=== PATIENT | female | born 1955 | race Caucasian/White ===

== ENCOUNTER 2017-03-05 11:55 | Outpatient (CLI) | payer OTHER | END 2017-03-05 11:56 | disposition home or self-care (01) | LOC: AMBL 11:55 | PROVIDERS: ATTEND Emergency Medicine | DX: M79.89 Other specified soft tissue disorders (principal); M79.604 Pain in right leg ==

== ENCOUNTER 2017-03-18 13:17 | Outpatient (CLI) ==
--- NOTE | 2017-03-18 14:30 | US ---
EXAM: Bilateral lower extremity venous Doppler HISTORY: Concern for DVT with lower extremity pain and the patient reports prior DVT. COMPARISON: None TECHNIQUE: Sonographic and Doppler evaluation of the bilateral lower extremity vessels from the com mon femoral through the anterior tibial veins were obtained. Augmentation and compression technique s were also performed. FINDINGS: There is spontaneous Doppler flow seen in the bilateral lower extremity veins from the co mmon femoral through the anterior tibial veins. There is normal compression and augmentation throug hout the lower extremity veins. Sonographic appearance of the soft tissues demonstrate mild edema. IMPRESSION: No lower extremity thrombus.
[2017-03-19 18:04] VITALS: BMI 21.1
--- NOTE | 2017-03-20 09:21 | ECHO2D ---
Date of Exam: 03/18/17 Ordering Physician: BRIT MONTGOMERY Reason for Echo: BILATERAL EDEMA, REDNESS, SWELLING, LVH M-Mode Normal Adult Results LV Dimensions Normal Adult Results AoV Opening excursions >1.6 >1.6 LVEDD-base- 3.5-5.8 4.2 Ao root dimensions 2.0-3.7 3.4 LVESD-base- 3.1-4.6 L. Atrium dimensions 1.9-3.8 4.5 Post. Wall thickness 0.8-1.1 1.1 IV septum (thickness) 0.7-1.2 1.2 Post. Wall excursion 0.72-1.3 NORMAL Septal motion NORMAL Systolic motion R. Ventricular cavity 1.5-2.0 NORMAL LVEF 60% 74% Paradoxical septal wall motion NORMAL 2-D : VALVES--NORMAL, NORMAL LEFT VENTRICULAR CONTRACTILITY--ENLARGED LEFT ATRIAL CAVITY, NO EFFUSION, NO THROMBUS M-MODE: MV: NORMAL AV: NORMAL TV: NORMAL PV: CHAMBER SIZE: ENLARGED LEFT ATRIAL CAVITY WALL MOTION: NORMAL PERICARDIUM: NORMAL INTERPRETATION: 1. BORDERLINE LEFT VENTRICULAR HYPERTROPHY WITH ENLARGED LEFT ATRIAL CAVITY 2. NORMAL LEFT VENTRICULAR CONTRACTILITY 3. NORMAL VALVES MTDD
== END 2017-03-18 13:18 | disposition home or self-care (01) ==
LOC: RAD 13:17
PROVIDERS: ATTEND Internal Medicine
DX: J44.9 Chronic obstructive pulmonary disease, unspecified (principal); R60.0 Localized edema; M79.605 Pain in left leg; M79.604 Pain in right leg; L53.9 Erythematous condition, unspecified

== ENCOUNTER 2017-03-19 17:44 | Emergency (ER) ==
[2017-03-19 18:04] VITALS: BP 161/60; TEMP 97.2; BMI 21.1
[2017-03-19] MEDS ORDERED: VALIUM SYRINGE IM STA (18:15)
[2017-03-19] MEDS ORDERED: GLUCAGEN IM STA (18:15)
--- NOTE | 2017-03-19 18:21 | ED.PDOC ---
General ED Provider: Dr. JI RODAS Stated Complaint: DYSPHAGIA TO SOLIDS FEELS FOOD IS STUCK Time Seen by Physician: 17:45 (WHILE EATING SOME RIBS A MEAT PORTION GOT STUCK IN HER THROAT) Mode of Arrival: Walk-In Information Source: Patient Exam Limitations: No limitations Primary Care Provider: BRIT MONTGOMERY Nursing and Triage Documentation Reviewed and Agree: Yes <JI RODAS Last Filed: 03/19/17 18:19> ED Provider: Dr. CHIDI ROWLAND Primary Care Provider: BRIT MONTGOMERY <CHIDI ROWLAND Last Filed: 03/19/17 21:11> Chief Complaint: Non-specific Complaint EENT Complaint Exam - Throat Complaint/Exam Onset/Duration: 1 PM Symptoms Are: Still present (NO DROOLING NOTED WHILE IN THE E/D) Timimg: Constant Initial Severity: Mild Current Severity: Mild Aggravating: Reports: Eating (WAS ABLE TO LAY ON HER SIDE ) Alleviating: Reports: Upright position Associated Signs and Symptoms: Denies: Fever, Dysphagia, Drooling, Foreign body sensation, Chills, Cough, Wheezing, Hoarseness, Sinus discomfort, Nasal congestion, Difficulty breathing, Lethargy, Irritability, Decreased activity, Vomiting, Diarrhea, Decreased hearing, Ear drainage Related History: Reports: Similar Episode (YES BUT IT RESOLVES ITSELF PER PHILL GRAND DAUGHTER , PT HAS BARRETS ) Uvula Midline: Yes Ailyn-tonsillar Fluctuence: No Scarlatinaform Rash Present: No Stridor Present: No Sinus Tenderness Present: No Tonsillar Hypertrophy Present: No Tonsillar Exudate Present: No Ailyn-tonsillar Swelling Present: No Adenopathy Present: No Splenomegaly Present: No Differential Diagnoses: Other (CANCER OF ESOPHAGOUS) <JI RODAS Last Filed: 03/19/17 18:19> Review of Systems - Review Of Systems Constitutional: Reports: No symptoms Eyes: Reports: No symptoms Ears, Nose, Mouth, Throat: Reports: Throat pain Respiratory: Reports: No symptoms Cardiac: Reports: No symptoms GI: Reports: No symptoms : Reports: No symptoms Musculoskeletal: Reports: No symptoms Skin: Reports: No symptoms Neurological: Reports: No symptoms Endocrine: Reports: No symptoms Hematologic/Lymphatic: Reports: No symptoms All Other Systems: Reviewed and Negative <JI RODAS Filed: 03/19/17 18:19> Past Medical History - Past Medical History Previously Healthy: No Endocrine: Reports: DM 2 Cardiovascular: Reports: Hypertension Respiratory: Reports: COPD, Pneumonia Hematological: Reports: Anemia (B12 DIFFICENCY) Gastrointestinal: Reports: Other (BARRETES ) Genitourinary: Reports: None Neuro/Psych: Reports: None Musculoskeletal: Reports: None Cancer: Reports: Other Last Menstrual Period: menoapuse - Surgical History General Surgical History: Reports: Tubal ligation, Cholecystectomy, Orthopedic ( [facility]BOW) - Family History Family History: Reports: Unknown - Social History Smoking Status: Former smoker Hx Substance Use: No Alcohol Screening: None <JI RODAS - Last Filed: 03/19/17 18:19> Physical Exam - Physical Exam Appearance: Well-appearing Eyes: YENI, EOMI, Conjunctiva clear ENT: Ears normal, Nose normal, Oropharynx normal Respiratory: Airway patent, Breath sounds clear, Breath sounds equal, Respirations nonlabored Cardiovascular: RRR, Pulses normal, No rub, No murmur GI/: Soft, Nontender, No masses, Bowel sounds normal, No Organomegaly Musculoskeletal: Normal strength, ROM intact, No edema, No calf tenderness Skin: Warm, Dry, Normal color Neurological: Sensation intact, Motor intact, Reflexes intact, Cranial nerves intact, Alert, Oriented Psychiatric: Affect appropriate, Mood appropriate <JI RODAS - Last Filed: 03/19/17 18:19> Interpretation - Radiology Interpretation Radiology Interpretation By: Radiologist Radiology Results: Positive (Heterogenous Material food bolus measuring 2.2x3.3x4.1 in the proximal cervical esophagus) Exam Interpreted: CT Scan <CHIDI ROWLAND - Last Filed: 03/19/17 21:11> Physician Notification - Case Discussed Physician Notified: Dr HOOPER Time of Notification: 20:20 (acepted to ER at [facility] ) <CHIDI ROWLAND - Last Filed: 03/19/17 21:11> Critical Care Note - Critical Care Note Total Time (mins): 0 <JI RODAS - Last Filed: 03/19/17 18:19> Course - Course Orders, Labs, Meds: Orders Category Date Time Status Diazepam Syringe [Valium Syringe] MEDS 03/19/17 18:15 Stat 2 mg IM ONCE STA Glucagon,Human Recombinant [Glucagen] MEDS 03/19/17 18:15 Stat 1 mg IM ONCE STA Medications Discontinued Medications Generic Name Dose Route Start Last Admin Trade Name Freq PRN Reason Stop Dose Admin Diazepam 2 mg 03/19/17 18:15 Valium Syringe IM 03/19/17 18:16 ONCE STA Glucagon 1 mg 03/19/17 18:15 Glucagen IM 03/19/17 18:16 ONCE STA Vital Signs: Temp Pulse Resp BP Pulse Ox 03/19/17 17:45 97.2 F L 91 H 20 161/60 H 98 <JI RODAS - Last Filed: 03/19/17 18:19> - Course Hematology/Chemistry: 03/19/17 18:04 03/19/17 19:17 Orders, Labs, Meds: Lab Review 03/19/17 03/19/17 18:04 19:17 WBC 4.54 L RBC 3.83 L Hgb 8.4 L Hct 30.1 L MCV 78.6 L MCH 21.9 L MCHC 27.9 L RDW Coeff of Juanpablo 17.1 H Plt Count 343 Immature Gran % (Auto) 0.2 Neut % (Auto) 51.5 Lymph % (Auto) 33.9 [place] % (Auto) 10.6 H Eos % (Auto) 2.0 Baso % (Auto) 1.8 Immature Gran # (Auto) 0.0 Neut # 2.3 Lymph # 1.5 [place] # 0.5 Eos # 0.1 Baso # 0.1 Sodium 140 Potassium 3.1 L Chloride 103 Carbon Dioxide 27 Anion Gap 13.1 BUN 15 Creatinine 0.92 Estimated GFR (MDRD) 62.00 BUN/Creatinine Ratio 16.30 Glucose 124 H Calcium 8.8 Total Bilirubin 0.37 AST 19 ALT 12 Alkaline Phosphatase 88 Total Protein 7.5 Albumin 2.8 L Globulin 4.7 Albumin/Globulin Ratio 0.60 Orders Category Date Time Status IV [ED IV/MEDIPORT/POWERPORT] .ONCE EMERGENCY 03/19/17 19:23 Active CBC W/ AUTO DIFF Stat LAB 03/19/17 18:04 Completed COMPREHENSIVE METABOLIC PANEL Stat LAB 03/19/17 19:17 Completed 0.9 % Sodium Chloride [Saline Flush] MEDS 03/19/17 19:23 Ordered 1 syr IVF PRN PRN Diazepam Syringe [Valium Syringe] MEDS 03/19/17 18:15 Discontinued 2 mg IM ONCE STA Glucagon,Human Recombinant [Glucagen] MEDS 03/19/17 18:15 Discontinued 1 mg IM ONCE STA Morphine Sulfate [Morphine 2 mg/ml Syringe] MEDS 03/19/17 19:25 Discontinued 2 mg IVP ONCE STA Sodium Chloride 0.9% [Sodium Chloride] 1,000 ml MEDS 03/19/17 19:[address] SOFT TISSUE NECK W/O CONTR Stat RADS 03/19/17 18:34 Completed Medications Generic Name Dose Route Start Last Admin Trade Name Freq PRN Reason Stop Dose Admin Sodium Chloride 1 syr 03/19/17 19:23 Saline Flush IVF PRN PRN To flush IV Discontinued Medications Generic Name Dose Route Start Last Admin Trade Name Freq PRN Reason Stop Dose Admin Diazepam 2 mg 03/19/17 18:15 03/19/17 18:26 Valium Syringe IM 03/19/17 18:16 2 mg ONCE STA Administration Glucagon 1 mg 03/19/17 18:15 03/19/17 18:26 Glucagen IM 03/19/17 18:16 1 mg ONCE STA Administration Sodium Chloride 1,000 mls @ 1,000 mls/hr 03/19/17 19:25 03/19/17 19:33 Sodium Chloride IV 03/19/17 20:24 1,000 mls/hr BOLUS STA Administration Morphine Sulfate 2 mg 03/19/17 19:25 03/19/17 19:32 Morphine 2 Mg/Ml Syringe IVP 03/19/17 19:26 2 mg ONCE STA Administration Vital Signs: Temp Pulse Resp BP Pulse Ox 03/19/17 17:45 97.2 F L 91 H 20 161/60 H 98 <CHIDI ROWLAND - Last Filed: 03/19/17 21:11> Departure - Departure Pt referred to PMD for follow-up: No Disposition Discussed With: Patient, Family <JI RODAS - Last Filed: 03/19/17 18:19> - Departure Time of Disposition: 20:37 Pt. Stabilized Within Hospital's Capabilities/Transferred To: [facility] Transfer Form Completed: Yes Disposition Discussed With: Patient, Family <CHIDI ROWLAND - Last Filed: 03/19/17 21:11> - Departure Disposition: HOME SELF-CARE Discharge Problem: Dysphagia Qualifiers: Dysphagia type: oral phase Qualifier Code: (R13.11) Dysphagia, oral phase Instructions: Dysphagia (ED) Additional Instructions: Please call your Family Physician as soon as possible to schedule a follow-up appointment.THIS CONDITION IS HIGHLY CONSISTENT WITH ESOPHAGEAL CANCER PLEASE SEE PMD FOR ENDOSCOPY CLAUDETTE Allergies/Adverse Reactions: Allergies sulfamethoxazole [From Bactrim] Adverse Reaction (Verified 03/19/17 17:54) tetracycline [Tetracycline] Adverse Reaction (Verified 03/19/17 17:54) trimethoprim [From Bactrim] Adverse Reaction (Verified 03/19/17 17:54) Home Medications: Ambulatory Orders Diazepam [Valium] 5 mg PO DAILY 04/28/15 Hydrocodone Bit/Acetaminophen [Lortab 10-500] 10 mg PO TID 04/28/15 Pantoprazole Sodium [Protonix] 40 mg PO BID 04/28/15 Pentoxifylline [Trental] 400 mg PO TID 04/28/15 Pregabalin [Lyrica] 100 mg PO TID 04/28/15
[2017-03-19 19:06] LABS: BASOPHILS # (AUTO) 0.1 K/uL (0-0.2); BASOPHILS % (AUTO) 1.8 % (0.0-3.0); EOSINOPHILS # (AUTO) 0.1 K/ul (0.0-0.7); HEMATOCRIT 30.1 % (37.0-47.0); HEMOGLOBIN 8.4 g/dl (12.0-16.0); IMMATURE GRANULOCYTE % (AUTO) 0.2 % (0.0-5.0); LYMPHOCYTES # (AUTO) 1.5 K/uL (0.60-3.4); LYMPHOCYTES % (AUTO) 33.9 (10.0-50.0); MEAN CORPUSCULAR HEMOGLOBIN 21.9 pg (27.0-31.0); MEAN CORPUSCULAR HGB CONC 27.9 (31.8-35.4); MEAN CORPUSCULAR VOLUME 78.6 fl (81.0-99.0); MONOCYTES # (AUTO) 0.5 K/uL (0.4-2.0); MONOCYTES % (AUTO) 10.6 (0-10); NEUTROPHILS # (AUTO) 2.3 K/ul (2.0-6.9); NEUTROPHILS % (AUTO) 51.5; PLATELET COUNT 343 10^3/uL (140-440); RED BLOOD COUNT 3.83 10^6/ul (4.20-5.40); WHITE BLOOD COUNT 4.54 K/ul (4.6-10.2)
--- NOTE | 2017-03-19 19:08 | CT ---
EXAM: CT of the neck without contrast. HISTORY: Feels food is stuck in her throat. PROCEDURE: Contiguous axial CT images of the neck without contrast with coronal and sagittal reform ats. FINDINGS: There is heterogeneous material consistent with a food bolus measuring 2.2 cm AP X 3.3 cm transverse X 4.1 cm craniocaudad in the proximal cervical esophagus. The parotid glands, submandibul ar glands and thyroid gland are normal in appearance. The pharynx, larynx and trachea are normal in appearance. The epiglottis and prevertebral soft tissues are normal in appearance per The lung apice s are normal in appearance. There are degenerative changes in the spine. Impression: Heterogeneous material consistent with a food bolus measuring 2.2 x 3.3 x 4.1 cm in the proximal cervical esophagus.
[2017-03-19] MEDS ORDERED: MORPHINE 2 MG/ML SYRINGE IVP STA (19:25)
[2017-03-19] MEDS ORDERED: SODIUM CHLORIDE 1,000 ML IV STA (19:25)
[2017-03-19 19:33] LABS: ALBUMIN 2.8 g/dL (3.4-5.0); ALBUMIN/GLOBULIN RATIO 0.6; ANION GAP 13.1; BILIRUBIN,TOTAL 0.37 mg/dL (0.00-1.20); BUN/CREATININE RATIO 16.3; CALCIUM 8.8 mg/dL (8.2-10.2); CREATININE 0.92 mg/dL (0.60-1.30); POTASSIUM 3.1 mmol/L (3.5-5.10); TOTAL PROTEIN 7.5 g/dL (5.8-8.1)
== END 2017-03-19 21:30 | disposition short-term general hospital (02) ==
LOC: ED 17:44
DX: R13.11 Dysphagia, oral phase (principal); E11.9 Type 2 diabetes mellitus without complications; I10 Essential (primary) hypertension; D64.9 Anemia, unspecified; K22.70 Barrett's esophagus without dysplasia; Z79.899 Other long term (current) drug therapy
CPT/HCPCS: 36415; 80053; 85025; 96360; 96361; 96372; 96375; 99285

== ENCOUNTER 2017-03-19 21:32 | Outpatient (CLI) ==
[2017-03-19 18:04] VITALS: BMI 21.1
== END 2017-03-19 21:33 | disposition home or self-care (01) ==
LOC: AMBL 21:32
PROVIDERS: ATTEND Internal Medicine Geriatric Medicine
DX: T18.108A Unspecified foreign body in esophagus causing other injury, initial encounter (principal); R13.10 Dysphagia, unspecified

== ENCOUNTER 2017-03-26 14:37 | Outpatient (CLI) ==
[2017-03-26 14:54] LABS: BASOPHILS % (AUTO) 0.8 % (0.0-3.0); EOSINOPHILS # (AUTO) 0.2 K/ul (0.0-0.7); EOSINOPHILS % (AUTO) 3.8 % (0.0-7.0); HEMATOCRIT 29.8 % (37.0-47.0); HEMOGLOBIN 8.5 g/dl (12.0-16.0); IMMATURE GRANULOCYTE % (AUTO) 0.2 % (0.0-5.0); LYMPHOCYTES # (AUTO) 1.5 K/uL (0.60-3.4); LYMPHOCYTES % (AUTO) 31.9 (10.0-50.0); MEAN CORPUSCULAR HGB CONC 28.5 (31.8-35.4); MONOCYTES # (AUTO) 0.5 K/uL (0.4-2.0); NEUTROPHILS # (AUTO) 2.5 K/ul (2.0-6.9); NEUTROPHILS % (AUTO) 52.3; PLATELET COUNT 354 10^3/uL (140-440); RED BLOOD COUNT 3.87 10^6/ul (4.20-5.40)
[2017-03-26 15:05] LABS: ANISOCYTOSIS NOT PRESENT (NOT PRESENT)
[2017-03-26 15:11] LABS: HYPOCHROMASIA 1+ (NOT PRESENT)
[2017-03-26 15:12] LABS: MICROCYTOSIS 1+ (NOT PRESENT)
== END 2017-03-26 14:38 | disposition home or self-care (01) ==
LOC: LAB 14:37
PROVIDERS: ATTEND Internal Medicine
DX: D64.9 Anemia, unspecified (principal)
CPT/HCPCS: 36415; 85008; 85025

== ENCOUNTER 2017-12-14 15:34 | Emergency (ER) ==
[2017-12-14 15:41] VITALS: BP 130/74; TEMP 97.6; BMI 23.1
[2017-12-14] MEDS ORDERED: TORADOL IM STA (16:47)
--- NOTE | 2017-12-14 16:47 | ED.PDOC ---
General ED Provider: Dr. CHIDI ROWLAND Chief Complaint: Back Pain Stated Complaint: Patient is a 62 year old femal who has a history of Lower back pain and has been on pain management in the Past. States she feels comfortable when she leans forward. Time Seen by Physician: 16:39 Mode of Arrival: Walk-In Information Source: Patient Exam Limitations: No limitations Nursing and Triage Documentation Reviewed and Agree: Yes Reviewed sepsis parameters & appropriate labs ordered?: No System Inflammatory Response Syndrome: Not Applicable Sepsis Protocol: For patient's 13 years and over: Temp is 96.8 and below OR 101 and greater Pulse >90 BPM Resp >20/minute Acutely Altered Mental Status Are patient's symptoms suggestive of a new infection, such as: -Pneumonia -Skin, Soft Tissue -Endocarditis -UTI -Bone, Joint Infection -Implantable Device -Acute Abdominal Infection -Wound Infection -Meningitis -Blood Stream Catheter Infection -Unknown System Inflammatory Response Syndrome: Not Applicable Review of Systems - Review Of Systems Constitutional: Reports: No symptoms Eyes: Reports: No symptoms Ears, Nose, Mouth, Throat: Reports: No symptoms Respiratory: Reports: No symptoms Cardiac: Reports: No symptoms GI: Reports: No symptoms : Reports: No symptoms Musculoskeletal: Reports: Back pain Skin: Reports: No symptoms Neurological: Reports: Anxiety Endocrine: Reports: No symptoms Hematologic/Lymphatic: Reports: No symptoms All Other Systems: Reviewed and Negative Past Medical History - Past Medical History Previously Healthy: No Endocrine: Reports: DM 2 Cardiovascular: Reports: Hypertension Respiratory: Reports: COPD, Pneumonia Hematological: Reports: Anemia (B12 DIFFICENCY) Gastrointestinal: Reports: Other (BARRETES ) Genitourinary: Reports: None Neuro/Psych: Reports: None Musculoskeletal: Reports: None Cancer: Reports: Other Last Menstrual Period: n/a - Surgical History General Surgical History: Reports: Tubal ligation, Cholecystectomy, Orthopedic ( ELBOW) - Family History Family History: Reports: Unknown - Social History Smoking Status: Former smoker Hx Substance Use: No Alcohol Screening: None Physical Exam - Physical Exam Appearance: Ill-appearing, Thin Pain Distress: Severe Eyes: YENI, EOMI, Conjunctiva clear Neck: Supple Respiratory: Airway patent, Breath sounds clear, Breath sounds equal, Respirations nonlabored Cardiovascular: RRR, Pulses normal, No rub, No murmur GI/: Soft, Nontender, No masses, Bowel sounds normal, No Organomegaly Musculoskeletal: Normal strength Skin: Warm, Dry, Normal color Neurological: Sensation intact, Motor intact, Reflexes intact, Cranial nerves intact, Alert, Oriented Psychiatric: Anxious Interpretation - Radiology Interpretation Radiology Interpretation By: Radiologist Radiology Results: Positive Exam Interpreted: CT Scan (Linear Lucency through the superior aspect of the sacrum most consistent with a non displaced fracture.) Critical Care Note - Critical Care Note Total Time (mins): 0 Course - Course Orders, Labs, Meds: Orders Category Date Time Status Ketorolac Tromethamine [Toradol] MEDS 12/14/17 16:47 Discontinued 60 mg IM ONCE STA CT LUMBAR SPINE W/O CONTRAST Stat RADS 12/14/17 16:[address] PELVIS W/O CONTRAST Stat RADS 12/14/17 16:38 Completed Medications Discontinued Medications Generic Name Dose Route Start Last Admin Trade Name Freq PRN Reason Stop Dose Admin Ketorolac Tromethamine 60 mg 12/14/17 16:47 12/14/17 16:53 Toradol IM 12/14/17 16:48 60 mg ONCE STA Administration Vital Signs: Temp Pulse Resp BP Pulse Ox 12/14/17 15:34 97.6 F 99 H 16 130/74 97 Departure - Departure Time of Disposition: 18:12 Disposition: HOME SELF-CARE Discharge Problem: Sacral fracture Qualifiers: Encounter type: initial encounter Zone of sacrum fracture: unspecified portion of sacrum Fracture type: closed Qualified Code(s): S32.10XA - Unspecified fracture of sacrum, initial encounter for closed fracture Instructions: Sacral Fracture (ED) Condition: Stable Pt referred to PMD for follow-up: Yes IPMP verified?: No Additional Instructions: Take medications as prescribed Follow up with PCP in 3 days Prescriptions: Hydrocodone/Acetaminophen [[place] 5-325 Tablet] 1 tab PO Q6HR PRN #12 tablet PRN Reason: PAIN Ibuprofen [Motrin] 600 mg PO Q6H PRN #30 tablet PRN Reason: Analgesia Allergies/Adverse Reactions: Allergies sulfamethoxazole [From Bactrim] Adverse Reaction (Verified 12/14/17 15:41) tetracycline [Tetracycline] Adverse Reaction (Verified 12/14/17 15:41) trimethoprim [From Bactrim] Adverse Reaction (Verified 12/14/17 15:41) Home Medications: Ambulatory Orders Pantoprazole Sodium [Protonix] 40 mg PO BID 04/28/15 Pregabalin [Lyrica] 100 mg PO TID 04/28/15 Hydrocodone/Acetaminophen [[place] 5-325 Tablet] 1 tab PO Q6HR PRN #12 tablet Ibuprofen [Motrin] 600 mg PO Q6H PRN #30 tablet 12/14/17 Disposition Discussed With: Patient
--- NOTE | 2017-12-14 17:22 | CT ---
EXAM: CT pelvis without contrast HISTORY: Lower back pain. COMPARISON: CT lumbar spine same day. TECHNIQUE: Serial axial image of the pelvis were obtained without contrast and reviewed in multiple planes. FINDINGS: There is a linear lucency in the superior sacrum which extends horizontally as seen on umair nal image 41 and 39. There is cortical disruption identified anteriorly. No periosteal reaction is noted. There is mild degenerative disease in the lumbosacral spine. Small bowel and colon in the pelvis is normal. Uterus is normal. There is a right adnexal cyst note d measuring 1.5 cm in diameter. Urinary bladder is distended. There is no free air or free fluid. IMPRESSION: 1. Linear lucency extending horizontally across the superior aspect of the sacrum consistent with no ndisplaced fracture. If further evaluation is clinically indicated, MRI may be obtained. 2. Mild scattered degenerative disease of the lower lumbar spine.
--- NOTE | 2017-12-14 17:29 | CT ---
EXAM: CT lumbar spine without contrast. HISTORY: Severe lower back pain with radiculopathy COMPARISON: CT pelvis same day TECHNIQUE: Serial axial images of the spine were obtained from the lower thoracic spine through the pelvis without contrast. These were viewed in multiple planes. FINDINGS: Vertebral bodies demonstrate normal height, disc space and alignment. The linear lucency is seen horizontally through the superior aspect of the sacrum is redemonstrated, but better evaluate d on the CT pelvis. There are scattered anterior disc osteophytes. There is scattered moderate face t arthropathy. There is no lytic or blastic lesion. The lumbosacral junction is intact. L1-L2: Small broad-based disc bulge with no central or neural foraminal narrowing. L2-L3: Small broad-based disc bulge with no central or neural foraminal narrowing. L3-L4: Moderate broad-based disc bulge and facet arthropathy with mild bilateral neural foraminal dewey rowing. L4-L5: Broad-based disc bulge with facet arthropathy and ligamentum flavum hypertrophy with mild cent ral and bilateral neural foraminal narrowing. L5-S1: Broad-based disc bulge with no central or neural foraminal narrowing. Limited views of the soft tissues demonstrate moderate hiatal hernia. There is mild scattered athero sclerotic disease. IMPRESSION: 1. Linear lucency through the superior aspect of the sacrum most consistent with a nondisplaced frac ture. 2. Multilevel degenerative disease of the spine with areas of central and neural foraminal narrowing no greater than mild. If further evaluation is indicated, MRI may be obtained. 3. Moderate hiatal hernia with scattered atherosclerotic disease.
== END 2017-12-14 18:31 | disposition home or self-care (01) ==
LOC: ED 15:34
DX: S32.10XA Unspecified fracture of sacrum, initial encounter for closed fracture (principal)
CPT/HCPCS: 96372; 99283

== ENCOUNTER 2017-12-23 15:55 | Outpatient (CLI) ==
[2017-12-24 22:58] VITALS: BMI 23.3
== END 2017-12-23 15:56 | disposition home or self-care (01) ==
LOC: FCC-LAB 15:55
PROVIDERS: ATTEND Family Medicine
DX: E78.5 Hyperlipidemia, unspecified (principal); D64.9 Anemia, unspecified; E55.9 Vitamin D deficiency, unspecified; E53.8 Deficiency of other specified B group vitamins; E87.6 Hypokalemia; M81.0 Age-related osteoporosis without current pathological fracture; R01.1 Cardiac murmur, unspecified; R63.4 Abnormal weight loss; K22.719 Barrett's esophagus with dysplasia, unspecified; R13.10 Dysphagia, unspecified
CPT/HCPCS: 36415; 80053; 80061; 82306; 82607; 84443; 85008; 85025

== ENCOUNTER 2017-12-24 15:31 | Outpatient (CLI) | payer OTHER ==
[2017-12-24 22:58] VITALS: BMI 23.3
== END 2017-12-24 15:32 | disposition home or self-care (01) ==
LOC: LAB 15:31
PROVIDERS: ATTEND Family Medicine
DX: R73.9 Hyperglycemia, unspecified (principal); E53.8 Deficiency of other specified B group vitamins
CPT/HCPCS: 36415; 83036

== ENCOUNTER 2017-12-24 16:24 | Inpatient (IN) ==
[2017-12-24] MEDS ORDERED: ZOFRAN 4 MG/2 ML IM STA (19:38)
[2017-12-24] MEDS ORDERED: DEMEROL 25 MG/ML VIAL IM STA (19:38)
--- NOTE | 2017-12-24 19:46 | ED.PDOC ---
General ED Provider: Dr. ELANA JIMENEZ Chief Complaint: Non-specific Complaint Stated Complaint: Patient was sent by PMD, for the abnormal Labs, HG 5.5 . she is been feeling weak, tired. Time Seen by Physician: 20:23 Mode of Arrival: Wheelchair Information Source: Patient Primary Care Provider: BRIT MONTGOMERY Nursing and Triage Documentation Reviewed and Agree: Yes Reviewed sepsis parameters & appropriate labs ordered?: No System Inflammatory Response Syndrome: Not Applicable Sepsis Protocol: For patient's 13 years and over: Temp is 96.8 and below OR 101 and greater Pulse >90 BPM Resp >20/minute Acutely Altered Mental Status Are patient's symptoms suggestive of a new infection, such as: -Pneumonia -Skin, Soft Tissue -Endocarditis -UTI -Bone, Joint Infection -Implantable Device -Acute Abdominal Infection -Wound Infection -Meningitis -Blood Stream Catheter Infection -Unknown Miscellaneous Complaint Exam - Complex/Multi-System Complaint/Exam Symptoms Are: Still present Episodes Lasting: Days Location of Pain: pelvic pain, Character: dull pain. Aggravating: walking makes pain worse. Associated Signs and Symptoms: Reports: Back pain Recent Echo/LV Function: No Respiratory Distress: None JVD Present: No Tachypnea Present: No Stridor Present: No Meningeal Signs Positive: No Focal Weakness: Present: None Focal Sensory Loss: Present: None Gait: Normal Gag Reflex Present: Yes Babinski Sign: Negative Right, Negative Left Joint Swelling Present: No In-Dwelling Device Present: No Differential Diagnosis: Other (anemia) Review of Systems - Review Of Systems Constitutional: Reports: Weakness Eyes: Reports: No symptoms Ears, Nose, Mouth, Throat: Reports: No symptoms Respiratory: Reports: No symptoms Cardiac: Reports: No symptoms GI: Reports: No symptoms : Reports: No symptoms Musculoskeletal: Reports: Back pain, Joint pain Skin: Reports: No symptoms Neurological: Reports: No symptoms Endocrine: Reports: No symptoms Hematologic/Lymphatic: Reports: No symptoms All Other Systems: Reviewed and Negative Past Medical History - Past Medical History Previously Healthy: No Endocrine: Reports: DM 2 Cardiovascular: Reports: Hypertension Respiratory: Reports: COPD, Pneumonia Hematological: Reports: Anemia (B12 DIFFICENCY) Gastrointestinal: Reports: Other (BARRETES ) Genitourinary: Reports: None Neuro/Psych: Reports: None Musculoskeletal: Reports: None Cancer: Reports: Other Last Menstrual Period: na - Surgical History General Surgical History: Reports: Tubal ligation, Cholecystectomy, Orthopedic ( [place]) - Family History Family History: Reports: Unknown - Social History Smoking Status: Never smoker Hx Substance Use: No Alcohol Screening: None - Immunizations Tetanus Shot up to Date: No Physical Exam - Physical Exam Appearance: Ill-appearing, Thin Eyes: YENI, EOMI, Conjunctiva clear ENT: Ears normal, Nose normal, Oropharynx normal Respiratory: Airway patent, Breath sounds clear, Breath sounds equal, Respirations nonlabored Cardiovascular: RRR, Pulses normal, No rub, No murmur GI/: Soft, Nontender, No masses, Bowel sounds normal, No Organomegaly Musculoskeletal: Normal strength, ROM intact, No edema, No calf tenderness Skin: Warm, Dry, Normal color Neurological: Sensation intact, Motor intact, Reflexes intact, Cranial nerves intact, Alert, Oriented Psychiatric: Affect appropriate, Mood appropriate Critical Care Note - Critical Care Note Total Time (mins): 15 Course - Course Hematology/Chemistry: 12/24/17 19:50 Orders, Labs, Meds: Lab Review 12/24/17 19:50 WBC 6.65 RBC 2.95 L Hgb 5.3 L* Hct 20.0 L MCV 67.8 L MCH 18.0 L MCHC 26.5 L RDW Coeff of Juanpablo 19.4 H Plt Count 339 Reticulocyte % (Auto) 1.89 Hypochromasia 2+ Anisocytosis Not present Microcytosis 1+ Stomatocytes 1+ Absolute Retic 0.0558 Retic Hgb Equivalent 15.4 Orders Category Date Time Status CBC W/ AUTO DIFF Routine LAB 12/24/17 19:50 Results FERRITIN Routine LAB 12/24/17 19:50 Received FOLATE Routine LAB 12/24/17 19:50 Received IRON AND TIBC Routine LAB 12/24/17 19:50 Received RBC MORPHOLOGY Routine LAB 12/24/17 19:50 Results RETIC COUNT Routine LAB 12/24/17 19:50 Results TRANSFERRIN Routine LAB 12/24/17 19:50 Received VITAMIN B12 Routine LAB 12/24/17 19:50 Received Meperidine HCl/Pf [Demerol 25 mg/ml Vial] MEDS 12/24/17 19:38 Discontinued 25 mg IM ONCE STA Ondansetron HCl/Pf [Zofran 4 mg/2 ml] MEDS 12/24/17 19:38 Discontinued 4 mg IM ONCE STA CHEST, 2 VIEWS PA & LAT Stat RADS 12/24/17 19:[address] ABDOMEN/PELVIS WO CONTRAST Stat RADS 12/24/17 19:38 Taken Medications Discontinued Medications Generic Name Dose Route Start Last Admin Trade Name Kulwinderq PRN Reason Stop Dose Admin Meperidine HCl 25 mg 12/24/17 19:38 12/24/17 19:56 Demerol 25 Mg/Ml Vial IM 12/24/17 19:39 25 mg ONCE STA Administration Ondansetron HCl 4 mg 12/24/17 19:38 12/24/17 19:56 Zofran 4 Mg/2 Ml IM 12/24/17 19:39 4 mg ONCE STA Administration Vital Signs: Temp Pulse Resp BP Pulse Ox 12/24/17 16:26 98.9 F 91 H 16 133/64 98 Departure - Departure Time of Disposition: 20:28 Disposition: ADMITTED INPATIENT Discharge Problem: Symptomatic anemia Instructions: Anemia (ED) Condition: Stable Pt referred to PMD for follow-up: No IPMP verified?: No Allergies/Adverse Reactions: Allergies sulfamethoxazole [From Bactrim] Adverse Reaction (Verified 12/24/17 16:34) tetracycline [Tetracycline] Adverse Reaction (Verified 12/24/17 16:34) trimethoprim [From Bactrim] Adverse Reaction (Verified 12/24/17 16:34) Home Medications: Ambulatory Orders Pantoprazole Sodium [Protonix] 40 mg PO BID 04/28/15 Hydrocodone/Acetaminophen [[place] 5-325 Tablet] 1 tab PO Q6HR PRN #12 tablet Ibuprofen [Motrin] 600 mg PO Q6H PRN #30 tablet 12/14/17 Disposition Discussed With: Patient
--- NOTE | 2017-12-24 20:48 | DI ---
Exam: Chest two-view History: Cough FINDINGS: Cardiac silhouette is upper limits. Pulmonary vasculature is normal. No infiltrative opa cities. Hiatus hernia shadow is present. Senescent changes of the chest wall. Impression: Borderline heart size. No acute cardiopulmonary disease.
--- NOTE | 2017-12-24 20:55 | CT ---
EXAM: CT scan abdomen pelvis without contrast HISTORY: Anemia COMPARISON: None. FINDINGS: Contiguous axial images were obtained through the abdomen and pelvis without contrast util izing 3-mm. Sagittal coronal reconstructions were imaged and reviewed. The visualized lung bases are clear.. There is an interventricular septal sign suggestive of anemia There is a moderate sized hi atal hernia.. There has been prior cholecystectomy. Calcification is noted posteriorly along the spl enic capsule possibly on a old post-traumatic basis. Atherosclerotic changes are seen involving the aorta without aneurysm formation.. The liver pancreas and adrenal glands have normal unenhanced CT a ppearance. Kidneys are morphologically normal. Exam. There is 1.6 cm right adnexal cyst. There is no free fluid. There is a normal-appearing bladder. Redemonstrated is a sacral fracture. IMPRESSION: Moderate sized hiatal hernia Prior cholecystectomy. Right adnexal cyst. No evidence of free fluid or inflammatory changes. Redemonstrated is a sacral fracture.
[2017-12-24 22:58] VITALS: BMI 23.3
[2017-12-25] MEDS: TORADOL IVP SCH ×3 (05:28→20:16)
[2017-12-25] MEDS: PROTONIX PO SCH ×2 (05:29→17:15)
[2017-12-25] MEDS: LYRICA PO SCH ×3 (08:56→20:16)
[2017-12-25] MEDS ORDERED: NON-FORMULARY MEDICATION (Pregabalin [Lyrica] 100 MG) PO SCH (09:00)
--- NOTE | 2017-12-25 11:16 | PCM.PROG ---
Attending Provider: ATTENDING PROVIDER: Dr. BRIT MONTGOMERY DATE OF SERVICE: 12/25/17 SUBJECTIVE: This 62 year old WHITE/ F was hospitalized 12/24/17 with severe anemia. The patient has been given 2 units with hemoglobin 7.3, hematocrit of 24. She is feeling better. Color improved some. Will give one more unit of PRBC. No evidence of active GI bleed. She missed appointment with windows deployment technician, Dr. Ha, scheduled in August. She has three PMD's, one in [place] and has used me as a primacy physician (I was involved for evaluation of shortness of breath from a cardiac standpoint) and also was seen by Dr. Barnes day before yesterday. She has declined Dr. Barnes recommendation to go to [facility] to be evaluated for severe anemia. I ended up admitting her as she was seen in the office as I was workers compensation claims specialist as hospitalist. REVIEW OF SYSTEMS: CONSTITUTIONAL: No night sweats. No fatigue, malaise, lethargy. No fever or chills. HEENT: Eyes: No visual changes. No eye pain. No eye discharge. ENT: No runny nose. No epistaxis. No sinus pain. No odynophagia. No congestion. RESPIRATORY: No cough, no congestion. No hemoptysis. No shortness of breath. CARDIOVASCULAR: No angina symptoms. No CHF symptoms. No atypical chest pain for CAD. No palpitations. No orthopnea.. GASTROINTESTINAL: No abdominal pain. No nausea or vomiting. No diarrhea or constipation. No hematemesis. No hematochezia. GENITOURINARY: No urgency. No frequency. No dysuria. No hematuria. No obstructive symptoms. No discharge. No pain. No significant abnormal bleeding. MUSCULOSKELETAL: Mild pain in the lower back area with sacral fracture sustained one week ago. NEUROLOGICAL: Awake, alert, oriented to time, place and person. No headache. No neck pain. No syncope. No seizures. No dizziness. PSYCHIATRIC: Not anxious. No depression. No suicidal thoughts. No homicidal thoughts. SKIN: No rash. No lesions. No wounds. ENDOCRINE: No unexplained weight loss. No weight gain. HEMATOLOGIC/LYMPHATIC: No anemia. No purpura. No petechiae. No prolonged or excessive bleeding. No palpable lymph nodes. PHYSICAL EXAMINATION: GENERAL: The patient is awake, alert and oriented, lying/sitting in bed in no distress. VITAL SIGNS: Temperature 98.2 F, Pulse 88, Respiratory Rate 16, BP 136/74, Pulse Ox 99% HEENT: Head normocephalic, atraumatic. Eyes: Extraocular muscles are intact. Pupils are equal, round and reactive to light and accommodation. Ears: No lesions. Nose appeared normal. Throat: No exudate or erythema. NECK: Supple. No JVD, no carotid bruit. No lymphadenopathy or thyromegaly. LUNGS: Decreased breath sounds. Clear to auscultation. Percussion note normal. Chest symmetrical. HEART: S1, S2, no S3. No murmurs. No cyanosis or clubbing. No ascites. Pulses: Dorsalis pedis and posterior tibial pulses +1 to +2 both sides. ABDOMEN: Soft. Non-tender. Bowel sounds active. No CVA tenderness. No mass felt. EXTREMITIES: No edema. Full range of motion of all extremities, equal. NEUROLOGIC: No focal deficit. Cranial nerves II through XII are grossly intact. No headache, no double vision or headache. SKIN: Warm and dry. Intact. Turgor-normal. LYMPHATIC: No palpable lymph nodes/no lymphedema. MUSCULOSKELETAL: Normal joints with no swelling. Muscle tone is normal. LAB REVIEW: 12/25/17 03:50 12/25/17 03:50 12/25/17 03:50: Sodium 141, Potassium 3.5, Chloride 105, Carbon Dioxide 25, Anion Gap 14.5, BUN 11, Creatinine 0.72, Estimated GFR (MDRD) 82.00, BUN/ Creatinine Ratio 15.27, Glucose 100, Calcium 8.9, Total Bilirubin 1.1, AST 17, ALT 12, Alkaline Phosphatase 124, Total Protein 6.5, Albumin 2.8 L, Globulin 3.7 , Albumin/Globulin Ratio 0.76, TSH 0.429 12/25/17 03:50: WBC 6.01, RBC 3.42 L, Hgb 7.3 L, Hct 24.9 L, MCV 72.8 L D, MCH 21.3 L, MCHC 29.3 L, RDW Coeff of Juanpablo 21.9 H, Plt Count 325, Immature Gran % ( Auto) 0.3, Neut % (Auto) 60.1, Lymph % (Auto) 24.0, [place] % (Auto) 12.1 H, Eos % (Auto) 2.5, Baso % (Auto) 1.0, Immature Gran # (Auto) 0.0, Neut # (Auto) 3.6, Lymph # (Auto) 1.4, [place] # (Auto) 0.7, Eos # (Auto) 0.2, Baso # (Auto) 0.1 ASSESSMENT: 1. Severe anemia, chronic 2. Pelvic fracture 3. Osteoporosis 4. Used to be a heavy smoker 5. COPD PLAN: 1. The patient is strongly advised to go back to [facility]. She has an appointment to see her today, which will postpone and schedule for next week. 2. Refer the patient to manager school/oncologist for severe chronic anemia. 3. Strongly advised to followup with Dr. Ha. Will send all records to PMD at [facility]. 4. The patient is noncompliant for followup. 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 5. Will give one more unit of PRBC. 7. CBC with differential at 5 p.m. 8. Daily CBC, CMP 9. Stool for occult blood Plan and coordination of the patient's care discussed in the presence of Brass Molder Helper and nurse. CONDITION: Stable; Prognosis is poor. SCRIBED BY: CHANDLER MONCADA, Patient Safety Officer scribed while in presence of service performed by Dr. BRIT MONTGOMERY on 12/25/17 ([id number])
[2017-12-26] MEDS: PROTONIX PO SCH (05:41)
[2017-12-26] MEDS: TORADOL IVP SCH ×2 (05:42→13:15)
[2017-12-26] MEDS ORDERED: FERROUS SULFATE PO SCH (09:30)
[2017-12-26] MEDS: LYRICA PO SCH (09:55)
[2017-12-26 10:33] VITALS: BP 133/80; TEMP 98.1
--- NOTE | 2017-12-26 10:57 | PCM.PROG ---
Attending Provider: ATTENDING PROVIDER: Dr. BRIT MONTGOMERY DATE OF SERVICE: 12/26/17 SUBJECTIVE: This 62 year old WHITE/ F was hospitalized 12/24/17 with severe anemia. The patent was given 3 units PRBCs and hemoglobin is 8.1 and hematocrit is 27. CT scan of abdomen normal. REVIEW OF SYSTEMS: CONSTITUTIONAL: Color is better. No night sweats. No fatigue, malaise, lethargy. No fever or chills. HEENT: Eyes: No visual changes. No eye pain. No eye discharge. ENT: No runny nose. No epistaxis. No sinus pain. No odynophagia. No congestion. RESPIRATORY: No cough, no congestion. No hemoptysis. No shortness of breath. CARDIOVASCULAR: No angina symptoms. No CHF symptoms. No atypical chest pain for CAD. No palpitations. No orthopnea.. GASTROINTESTINAL: No abdominal pain. No nausea or vomiting. No diarrhea or constipation. No hematemesis. No hematochezia. GENITOURINARY: No urgency. No frequency. No dysuria. No hematuria. No obstructive symptoms. No discharge. No pain. No significant abnormal bleeding. MUSCULOSKELETAL: No musculoskeletal pain; no joint swelling. NEUROLOGICAL: Awake, alert, oriented to time, place and person. No headache. No neck pain. No syncope. No seizures. No dizziness. PSYCHIATRIC: Not anxious. No depression. No suicidal thoughts. No homicidal thoughts. SKIN: No rash. No lesions. No wounds. ENDOCRINE: No unexplained weight loss. No weight gain. HEMATOLOGIC/LYMPHATIC: No anemia. No purpura. No petechiae. No prolonged or excessive bleeding. No palpable lymph nodes. PHYSICAL EXAMINATION: GENERAL: The patient is awake, alert and oriented, lying/sitting in bed in no distress. VITAL SIGNS: Temperature 98.0 F, Pulse 83, Respiratory Rate 12, BP 122/69, Pulse Ox 96% HEENT: Head normocephalic, atraumatic. Eyes: Extraocular muscles are intact. Pupils are equal, round and reactive to light and accommodation. Ears: No lesions. Nose appeared normal. Throat: No exudate or erythema. NECK: Supple. No JVD, no carotid bruit. No lymphadenopathy or thyromegaly. LUNGS: Decreased breath sounds. Clear to auscultation. Percussion note normal. Chest symmetrical. HEART: S1, S2, no S3. No murmurs. No cyanosis or clubbing. No ascites. Pulses: Dorsalis pedis and posterior tibial pulses +1 to +2 both sides. ABDOMEN: Soft. Non-tender. Bowel sounds active. No CVA tenderness. No mass felt. EXTREMITIES: No edema. Full range of motion of all extremities, equal. NEUROLOGIC: No focal deficit. Cranial nerves II through XII are grossly intact. No headache, no double vision or headache. SKIN: Warm and dry. Intact. Turgor-normal. LYMPHATIC: No palpable lymph nodes/no lymphedema. MUSCULOSKELETAL: Normal joints with no swelling. Muscle tone is normal. LAB REVIEW: 12/26/17 04:30 12/26/17 04:30 12/26/17 04:30: Sodium 142, Potassium 3.6, Chloride 108 H, Carbon Dioxide 25, Anion Gap 12.6, BUN 16, Creatinine 0.70, Estimated GFR (MDRD) 85.00, BUN/ Creatinine Ratio 22.85, Glucose 124 H, Calcium 8.3, Total Bilirubin 0.5, AST 14 L, ALT 11 L, Alkaline Phosphatase 124, Total Protein 5.6 L, Albumin 2.3 L, Globulin 3.3, Albumin/Globulin Ratio 0.70 12/26/17 04:30: WBC 8.94, RBC 3.68 L, Hgb 8.1 L, Hct 27.1 L, MCV 73.6 L, MCH 22.0 L, MCHC 29.9 L, RDW Coeff of Juanpablo 21.4 H, Plt Count 267, Immature Gran % ( Auto) 0.3, Neut % (Auto) 69.3, Lymph % (Auto) 19.2, [place] % (Auto) 7.6, Eos % ( Auto) 2.6, Baso % (Auto) 1.0, Immature Gran # (Auto) 0.0, Neut # (Auto) 6.2, Lymph # (Auto) 1.7, [place] # (Auto) 0.7, Eos # (Auto) 0.2, Baso # (Auto) 0.1 12/25/17 17:04: WBC 5.47, RBC 3.54 L, Hgb 7.8 L, Hct 25.9 L, MCV 73.2 L, MCH 22.0 L, MCHC 30.1 L, RDW Coeff of Juanpablo 21.3 H, Plt Count 277, Immature Gran % ( Auto) 0.4, Neut % (Auto) 50.2, Lymph % (Auto) 33.8, [place] % (Auto) 11.2 H, Eos % (Auto) 3.1, Baso % (Auto) 1.3, Immature Gran # (Auto) 0.0, Neut # (Auto) 2.8, Lymph # (Auto) 1.9, [place] # (Auto) 0.6, Eos # (Auto) 0.2, Baso # (Auto) 0.1 12/25/17 10:00: Urine Color Yellow, Urine Clarity Clear, Urine pH 5.5, Ur Specific [place] >=1.030, Urine Protein Negative, Urine Glucose (UA) Negative, Urine Ketones Negative, Urine Blood Negative, Urine Nitrite Negative, Urine Bilirubin 1+, Urine Urobilinogen 0.2, Ur Leukocyte Esterase 1+, Urine Microscopic WBC 10-20, Ur Squamous Epith Cells 0-2 12/25/17 03:50: Thyroxine (T4) 6.2 ASSESSMENT/PLAN: 1. Anemia likely multifactorial; needs GI workup. She had missed appointment with Dr. Ha and is strongly advised to reschedule. Will have primary care provider handle that. Will also need hematology/oncology referral for chronic anemia. 2. The patient has chronic lung disease. 3. Osteoporosis. 4. Discharge home. 5. Appointment with Joyce Rothman APRN for 01/01/18. The above diagnoses and plan discussed with the patient, will also give Protonix daily. Plan and coordination of the patient's care discussed in the presence of Potter Or Ceramic Artist and nurse. CONDITION: STABLE AT DISCHARGE; PROGNOSIS IS GUARDED THE PATIENT IS NONCOMPLIANT FOR FOLLOWUPS TO PRIMARY CARE AND CONSULTANTS. SCRIBED BY: CHANDLER MONCADA, Airplane Dispatcher scribed while in presence of service performed by Dr. BRIT MONTGOMERY on 12/26/17 ([id number])
--- NOTE | 2017-12-26 11:00 | CM.DICTOOL ---
ADMISSION: 12/24/17 21:53 DISCHARGE: December 26, 2017 DATE OF SERVICE: 12/26/17 FINAL DIAGNOSIS ANEMIA, SYMPTOMATIC WITH TRANSFUSION 3 UNITS PACKED CELLS SACRAL FRACTURE COPD GERD HIATAL HERNIA PER CT HISTORY OF BARRETTS ESOPHAGUS HISTORY OF HEPATITIS, AGE 10 HISTORY OF ALCOHOL ABUSE, STOPPED 7 YRS AGO CHRONIC BACK PAIN VITAMIN D DEFICIENCY B12 DEFICIENCY IRON DEFICIENCY BREAST REDUCTION CHOLECYSTECTOMY LAST VITALS Temp Pulse Resp BP Pulse Ox 98.0 F 83 12 122/69 96 12/26/17 06:00 12/26/17 06:00 12/26/17 06:00 12/26/17 06:00 12/26/17 06:00 ACTIVE HOME MEDICATIONS Pantoprazole Sodium (Protonix) 40 mg PO BIDAC [facility] Last Admin: 12/26/17 05:41 Dose: 40 mg Pregabalin (Lyrica) 100 mg PO TID [facility] Last Admin: 12/26/17 09:55 Dose: 100 mg ALLERGIES sulfamethoxazole [From Bactrim] Adverse Reaction (Verified 12/24/17 16:34) tetracycline [Tetracycline] Adverse Reaction (Verified 12/24/17 16:34) trimethoprim [From Bactrim] Adverse Reaction (Verified 12/24/17 16:34) NEW PRESCRIPTIONS: FERROUS SULFATE 325 MG BID SMOKING: NOT APPLICABLE DISEASE SPECIFIC EDUCATION: ANEMIA APPOINTMENTS/REFERRALS NUTRITION LAB REVIEW: 12/26/17 04:30 12/26/17 04:30 12/26/17 04:30: Sodium 142, Potassium 3.6, Chloride 108 H, Carbon Dioxide 25, Anion Gap 12.6, BUN 16, Creatinine 0.70, Estimated GFR (MDRD) 85.00, BUN/ Creatinine Ratio 22.85, Glucose 124 H, Calcium 8.3, Total Bilirubin 0.5, AST 14 L, ALT 11 L, Alkaline Phosphatase 124, Total Protein 5.6 L, Albumin 2.3 L, Globulin 3.3, Albumin/Globulin Ratio 0.70 12/26/17 04:30: WBC 8.94, RBC 3.68 L, Hgb 8.1 L, Hct 27.1 L, MCV 73.6 L, MCH 22.0 L, MCHC 29.9 L, RDW Coeff of Juanpablo 21.4 H, Plt Count 267, Immature Gran % ( Auto) 0.3, Neut % (Auto) 69.3, Lymph % (Auto) 19.2, [place] % (Auto) 7.6, Eos % ( Auto) 2.6, Baso % (Auto) 1.0, Immature Gran # (Auto) 0.0, Neut # (Auto) 6.2, Lymph # (Auto) 1.7, [place] # (Auto) 0.7, Eos # (Auto) 0.2, Baso # (Auto) 0.1 12/25/17 17:04: WBC 5.47, RBC 3.54 L, Hgb 7.8 L, Hct 25.9 L, MCV 73.2 L, MCH 22.0 L, MCHC 30.1 L, RDW Coeff of Juanpablo 21.3 H, Plt Count 277, Immature Gran % ( Auto) 0.4, Neut % (Auto) 50.2, Lymph % (Auto) 33.8, [place] % (Auto) 11.2 H, Eos % (Auto) 3.1, Baso % (Auto) 1.3, Immature Gran # (Auto) 0.0, Neut # (Auto) 2.8, Lymph # (Auto) 1.9, [place] # (Auto) 0.6, Eos # (Auto) 0.2, Baso # (Auto) 0.1 12/25/17 10:00: Urine Color Yellow, Urine Clarity Clear, Urine pH 5.5, Ur Specific [place] >=1.030, Urine Protein Negative, Urine Glucose (UA) Negative, Urine Ketones Negative, Urine Blood Negative, Urine Nitrite Negative, Urine Bilirubin 1+, Urine Urobilinogen 0.2, Ur Leukocyte Esterase 1+, Urine Microscopic WBC 10-20, Ur Squamous Epith Cells 0-2 12/25/17 03:50: Thyroxine (T4) 6.2 PLAN: DISCHARGE HOME DIET: REGULAR TOLERATED ACTIVITY: GRADUALLY RESUME TOLERATED CONTINUE MEDICATIONS LISTED ON NURSING DISCHARGE INFORMATION SHEET AN APPOINTMENT IS SCHEDULED WITH YOUR PRIMARY CARE PROVIDER, KSENIA MEHTA APRN ON JANUARY 01, 2018 AT 4:30 PM. AN APPOINTMENT IS SCHEDULED WITH DR. MONTAÑO, HEMATOLOGY ON JANUARY 07, 2018 AT 9: 15 PLEASE SPEAK WITH KSENIA MEHTA APRN REGARDING A REFERRAL TO A BLUEPRINT CLERK FOLLOW-UP WITH DR. MONTGOMERY ON REQUEST FROM PCP FOR CARDIAC PROBLEMS/ISSUES MS. CHI IS ALERT AND ORIENTED X 3. SHE IS INDEPENDENT WITH ACTIVITIES OF DAILY LIVING. SHE AMBULATES WITHOUT USE OF ASSISTIVE DEVICE OR STAFF ASSISTANCE. LOW BACK PAIN IS REPORTED AT TIMES, BUT SHE IS ABLE TO SIT IN THE BED AND REPOSITION SELF NEEDED. SHE DENIES SHORTNESS OF BREATH OR COUGH. NO ABDOMINAL PAIN REPORTED. NO NAUSEA OR DIARRHEA REPORTED. MEAL INTAKES ARE GOOD AT 100%. SKIN IS INTACT AND FREE OF DECUBITUS ULCERS, RASHES OR IRRITATION. BRIT MONTGOMERY MD
--- NOTE | 2017-12-27 13:19 | PN ---
DATE OF SERVICE: 12/24/17 SUBJECTIVE: The patient was seen in the office with hemoglobin of 5.5. She was advised to go to the emergency room to which she agreed reluctantly. In the emergency room , she did not want to get admitted but I went and visited her and examined her. The patient looked pale. She was oriented to time, place and person. She seems to have three primary doctors at the present time; Dr. Jerry Barnes, one in [place] who has been her primary doctor for a long time and she is also seeing me. After she was worked up for shortness of breath several months ago she walked into the office saying that her hemoglobin that was done yesterday by Dr. Jerry Barnes and was 5.5 with hematocrit of 15. The patient was advised workup, blood transfusion by Dr. Jerry Barnes but the patient declined. The patient wants me to take care of her. The patient left Dr. Jerry Barnes because he declined to give her pain medications and Adderall. The patient has been fired from under Dr. 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 PHYSICAL EXAMINATION: HEENT: Head normocephalic, atraumatic. Eyes: Extraocular muscles are intact. Pupils are equal, round and reactive to light and accommodation. Ears: No lesions. Nose appeared normal. Throat: No exudate or erythema. The patient looks pale. NECK: Supple. No JVD, no carotid bruit. No lymphadenopathy or thyromegaly. LUNGS: Decreased breath sounds but clear to auscultation. Percussion note normal. Chest symmetrical. HEART: S1, S2, no S3. No murmurs. No cyanosis or clubbing. No ascites. Pulses: Dorsalis pedis and posterior tibial pulses +1 to +2 both sides. ABDOMEN: Soft. Nontender. Bowel sounds active. No CVA tenderness. No mass felt. EXTREMITIES: No pedal edema. Full range of motion of all extremities, equal. NEUROLOGIC: No focal deficit. Cranial nerves II through XII are grossly intact. No headache, no double vision or headache. SKIN: Not dry. Intact. Turgor - normal. LYMPHATIC: No palpable lymph nodes/no lymphedema. MUSCULOSKELETAL: Normal joints with no swelling. Muscle tone is normal. ASSESSMENT: 1. SEVERE ANEMIA 2. CHRONIC LUNG DISEASE 3. REFLUX DISEASE 4. GENERALIZED OSTEOARTHRITIS PLAN: 1. Give 2 units of packed red cells. 2. Anemia profile. 3. Telemetry. 4. Daily CBC, CMP. 5. IV Toradol 30 mg q.8hr for pain. 6. Demerol 25 with Zofran 4 mg one time order for 12 hours for pain. I explained to the patient that I am not her primary M.D. and I am going to take care of her during this hospitalization. TIME SPENT: More than 30 minutes. Plan and coordination of the patient's care discussed in the presence of nurse. AGA
--- NOTE | 2017-12-30 11:39 | DS ---
DATE OF SERVICE: 12/26/17 FINAL DIAGNOSIS: 1. ANEMIA, SYMPTOMATIC WITH TRANSFUSION 3 UNITS PACKED CELLS 2. SACRAL FRACTURE 3. COPD 4. GERD 5. HIATAL HERNIA PER CT 6. HISTORY OF FAITH'S ESOPHAGUS 7. HISTORY OF HEPATITIS, AGE 10 8. HISTORY OF ALCOHOL ABUSE, STOPPED 7 YEARS AGO 9. CHRONIC BACK PAIN 10. VITAMIN D DEFICIENCY 11. B12 DEFICIENCY 12. IRON DEFICIENCY 13. BREAST REDUCTION 14. CHOLECYSTECTOMY V/S AT DISCHARGE: Temperature 98.0, pulse 83, respiratory rate 12, BP 122/69, pulse ox 96 DISCHARGE INSTRUCTIONS: Followup appointment: An appointment is scheduled with your primary care provider, Joyce Rothman APRN on 01/01/18 at 4:30 p.m. An appointment is scheduled with Dr. Pickett, Hematology on 01/07/18 at 9:15 a.m. Please speak with Joyce Rothman APRN, regarding a referral to a oncology specialist. Follow- up with Dr. Sanchze on request from PCP for cardiac problems/issues. MEDICATIONS AT DISCHARGE: Protonix 40 mg p.o. b.i.d. a.c. GRETTA Lyrica 100 mg p.o. t.i.d. GRETTA NEW PRESCRIPTIONS: Ferrous Sulfate 325 mg b.i.d. DIET INSTRUCTIONS: Regular as tolerated ACTIVITY: Gradually resume as tolerated SMOKING: N/A DISEASE SPECIFIC EDUCATION: Anemia Appointments/Referrals Nutrition HOSPITAL COURSE: 62-year-old white female walked into the office with lab results showing hemoglobin of 5.5, hematocrit 22. The patient looked pale. The patient, on the previous day was seen by Dr. Jerry Barnes and had ordered the lab tests which had already been reported to the patient and was advised to go to [facility] for further treatment but the patient had declined. She ended up with the reports in her hands in my office. I advised her to go to the emergency room and then I ended up admitting her for blood transfusion and monitoring the patient's hemoglobin, hematocrit. During the stay in the hospital, the patient' s overall cardiovascular and respiratory status was stable. She had three units of packed red cells. Her hemoglobin at the time of discharge was 8.1 with hematocrit of 27. The creatinine was 0.7, BUN 16. She was up and about and had no symptoms of coronary insufficiency or CHF. She has no evidence of active GI bleed during 48 hours of her stay at [facility]. The patient has history of chronic anemia. The patient had, according to her, missed appointment with Dr. Ha, who is oncology specialist. The patient was scheduled to have appointment with Dr. Pickett. She is to see her primary care, Joyce Rothman on 01/01/18. The patient agreed to see Dr. Ha and she will call and make an appointment with him. Differential diagnosis of anemia discussed with her. The patient was strongly advised to undergo EGD and colonoscopy. The patient is noncompliant and she shops around for the physicians. I had seen this patient initially for evaluation of shortness of breath and I had clearly mentioned to her that I would just be investigating her for shortness of breath with cardiac workup. It is to be noted that recently she was let go by Dr. Gilliam [facility]. She already had been treated by Dr. Bell who is a paint mixer hand in [place]. I explained to her that I will see her on referral by her primary care. CONDITION AT TIME OF DISCHARGE: Stable. TIME SPENT: More than 60 minutes. MTDD
--- NOTE | 2017-12-30 11:42 | PN ---
CODING FOR BILLING 12/24/17 LEVEL 5 12/25/17 INTERMEDIATE 12/26/17 DISCHARGE MTDD
--- NOTE | 2017-12-30 12:01 | HP ---
DATE OF SERVICE: 12/24/17 REASON FOR HOSPITALIZATION: Severe anemia HISTORY OF PRESENT ILLNESS: 62-year-old white female walked into the office with lab test results in her hands with hemoglobin of 5.5, hematocrit 22. The patient had practically no symptoms. She said she was feeling fine. I sent her to the emergency room for further workup where CT scan of the abdomen was negative. Chest x-ray was negative. The patient was then hospitalized for blood transfusion and monitoring to rule out any active GI bleeding. PAST MEDICAL HISTORY: History of anemia History of Faith's esophagus Chronic arthritis Chronic low back pain Hypertension Osteoporosis Sacral fracture Vitamin D deficiency ADHD PAST SURGICAL HISTORY: Breast reduction Cholecystectomy REVIEW OF SYSTEMS: CONSTITUTIONAL: Positive for fatigue. No weakness. No night sweats. No malaise , lethargy. No fever or chills. HEENT: Eyes: No visual changes. No eye pain. No eye discharge. ENT: No runny nose. No epistaxis. No sinus pain. No sore throat. No odynophagia. No ear pain. No congestion. RESPIRATORY: Positive for shortness of breath on exertion as usual. Mild cough , occasional. No hemoptysis. No PND, no orthopnea. CARDIOVASCULAR: No angina symptoms. No CHF symptoms. No atypical chest pain for CAD. No chest discomfort. No palpitations. No orthopnea. GASTROINTESTINAL: Appetite is below normal but that is the way it has been for a while according to her. No melena, no diarrhea. No abdominal pain. No nausea or vomiting. No hematemesis. No hematochezia. GENITOURINARY: No urgency. No frequency. No dysuria. No hematuria. No obstructive symptoms. No discharge. No pain. No significant abnormal bleeding. MUSCULOSKELETAL: Generalized aches and pains. She had recent fracture of the sacral area, complaining of back pain. NEUROLOGICAL: No headache. No neck pain. No syncope. No seizures. No dizziness. PSYCHIATRIC: The patient is anxious. No real depression. No suicidal thoughts. No homicidal thoughts. SKIN: No rash. No lesions. No wounds. ENDOCRINE: No unexplained weight loss. No weight gain. HEMATOLOGIC/LYMPHATIC: No anemia. No purpura. No petechiae. No prolonged or excessive bleeding. No palpable lymph nodes. PERSONAL/FAMILY/SOCIAL HISTORY: The patient is , lives by herself. Nonsmoker. History of alcohol abuse. The patient has several physicians. She was discharged from Dr. Gilliam because of noncompliance, not keeping up with the appointments. She has Joyce Rothman as PCP but she had seen me for evaluation of shortness of breath related to her cardiovascular problems. After that she was told only to come back for cardiac issues. Yesterday she was seen by Dr. Jerry Barnes as she wanted to establish him as a primary physician. MEDICATIONS: Pantoprazole 40 mg twice a day [place] 5/325 q.6 Motrin 600 q.6 Lyrica 100 mg p.o. t.i.d. Vitamin D Potassium supplements ALLERGIES: SULFAMETHOXAZOLE, TETRACYCLINE, TRIMETHROPRIM PHYSICAL EXAMINATION: GENERAL: The patient is oriented to time, place and person. VITAL SIGNS: Temperature 98, pulse 80/min, respiratory rate 12/min, BP 120/70, pulse ox 96% on room air. The patient looks pale. HEENT: Head normocephalic, atraumatic. Eyes: Extraocular muscles are intact. Pupils are equal, round and reactive to light and accommodation. Sclerae nonicteric. Ears: No lesions. Nose appeared normal. Throat: No exudate or erythema. NECK: Supple. No JVP, no carotid bruit. No lymphadenopathy or thyromegaly. LUNGS: Decreased breath sounds. Clear to auscultation. Percussion note normal. Chest symmetrical. HEART: S1, S2, no S3. Grade I/ systolic murmur. No cyanosis or clubbing. No ascites. Pulses: Dorsalis pedis and posterior tibial pulses +1 to +2 both sides. ABDOMEN: Soft. Nontender. Bowel sounds active. No CVA tenderness. No mass felt. EXTREMITIES: No pedal edema. Full range of motion of all extremities, equal. NEUROLOGIC: No focal deficit. Cranial nerves II through XII are grossly intact. No headache, no double vision or headache. Spine nontender. Sacral area tender. SKIN: Not dry. Intact. Turgor - normal. LYMPHATIC: No palpable lymph nodes/no lymphedema. MUSCULOSKELETAL: Normal joints with no swelling. Muscle tone is normal. ASSESSMENT: 1. SEVERE ANEMIA, HEMOGLOBIN OF 5.5, HEMATOCRIT 22, ETIOLOGY COULD BE MULTIFACTORIAL LIKE NUTRITIONAL, GI BLOOD LOSS, RULE OUT MALIGNANCY 2. CHRONIC LUNG DISEASE 3. SACRAL FRACTURE 4. HISTORY OF FAITH'S ESOPHAGUS 5. HISTORY OF ADHD 6. OSTEOPOROSIS 7. PERIPHERAL NEUROPATHY PLAN: 1. Admit the patient 2. Discuss the patient's Faith's esophagus with her and the complication it could have. She had canceled the appointment with Dr. Ha; strongly advised to call him back and get with EGD and colonoscopy. 3. Telemetry 4. Daily CBC, CMP 5. Type and crossmatch 2 units and will tranfuse her. 6. Will refer her to director supply chain. 7. Strongly advised to followup with Joyce Rothman, PCP at [facility]. 8. Explained to her that I will see her on request of her primary care for cardiac problems. 9. Advised strongly to discontinue nonsteroidal/antiinflammatory. 10. The patient is noncompliant. Her history is disjointed. She is intelligent but noncompliant with followups, lifestyle and medications. TIME SPENT: More than 70 minutes. AGA
== END 2017-12-26 13:50 | disposition home or self-care (01) | DRG 812 ==
LOC: ED 16:24 → MEDSURG A 21:53
PROVIDERS: ADMIT Internal Medicine; ATTEND Internal Medicine
PROC: 30233N1 Transfusion of Nonautologous Red Blood Cells into Peripheral Vein, Percutaneous Approach (ICD-10-PCS; principal; 2017-12-24)
DX: D64.9 Anemia, unspecified (principal); R73.9 Hyperglycemia, unspecified; E53.8 Deficiency of other specified B group vitamins; Z87.81 Personal history of (healed) traumatic fracture; J44.9 Chronic obstructive pulmonary disease, unspecified; K21.9 Gastro-esophageal reflux disease without esophagitis; K44.9 Diaphragmatic hernia without obstruction or gangrene; K22.70 Barrett's esophagus without dysplasia; F10.21 Alcohol dependence, in remission; G89.29 Other chronic pain; M54.9 Dorsalgia, unspecified; E55.9 Vitamin D deficiency, unspecified; D50.9 Iron deficiency anemia, unspecified
CPT/HCPCS: 36415; 36430; 80053; 81001; 82607; 82728; 82746; 83036; 83540; 83550; 84436; 84443; 84466; 85008; 85025; 85045; 86850; 86900; 86922; 87086; 93005; 93010; 96361; 96365; 99285

== ENCOUNTER 2018-04-21 11:20 | Day surgery (SDC) | payer OTHER ==
[2018-04-21] MEDS ORDERED: LIDOCAINE 1% 20 ML MDV ID STA (12:33)
[2018-04-21] MEDS ORDERED: DIPRIVAN 20 ML VIAL IVP ONE (12:40)
[2018-04-21] MEDS ORDERED: LIDOCAINE HCL 2% LUER-JET ONE (12:40)
[2018-04-21 15:33] VITALS: BP 135/89; TEMP 97.6
--- NOTE | 2018-04-22 11:23 | OP ---
PROCEDURE: EGD (ESOPHAGOGASTRODUODENOSCOPY) WITH BIOPSY. ENDOSCOPIST: Santos LINO M.D. INDICATION: ANEMIA INSTRUMENT: GIFH-190. MEDICATION: PER ANESTHESIA. PROCEDURE: The patient was positioned for endoscopy. The oropharynx was sprayed with Cetacaine spray and the endoscope was advanced through the bite block into the esophagus and from there advanced to the duodenum. The duodenum was normal. The pylorus was patent. The antrum reveal with gastritis with erosion. Appears to be the site of a previously identified ulcer. The base of this was biopsied. Biopsies for Helicobacter was obtained. On retroflex exam she does have a large hiatal hernia. 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 Biopsies were obtained at 30, 28 , 27 and 24cm from incisors. I saw no stricture or narrowing of the upper esophagus. The patient otherwise tolerated the procedure without immediate complications. PLAN: 1. Review her biopsies. 2. Repeat endoscopy in 3 years for Trevino's surveillance 3. Treat her H-Pylori is positive. 4. Ask her to refrain from non-steroidal 5. Continue the Proton pump inhabiter therapy MTDD
--- NOTE | 2018-04-22 11:32 | OP ---
PROCEDURE: COLONOSCOPY TO THE CECUM. ENDOSCOPIST: Santos LINO M.D. INDICATION: ANEMIA INSTRUMENT: PC-190. MEDICATION: PER ANESTHESIA. PROCEDURE: The patient was positioned for colonoscopy. The digital rectal exam was negative. The colonoscope was inserted through the anus and advanced to the cecum. [place] Bowel Prep Score 2+2+2=6. There was residual stool throughout the colon. We irrigated and suctioned to allow an adequate exam. No obvious large mass lesions noted. No blood noted. Retroflex exam was otherwise normal. Withdraw time 8 minutes. PLAN: 1. Repeat in 3 years with adherence to split dose prep CC: Dr. Daniel Pickett [facility]USSharlene
== END 2018-04-21 14:40 | disposition home or self-care (01) ==
LOC: SURG 11:20
PROVIDERS: ATTEND Internal Medicine Gastroenterology
DX: D64.9 Anemia, unspecified (principal); K44.9 Diaphragmatic hernia without obstruction or gangrene; K22.70 Barrett's esophagus without dysplasia
CPT/HCPCS: 87339

== ENCOUNTER 2018-06-17 15:36 | Outpatient (CLI) ==
--- NOTE | 2018-06-17 16:49 | DEXA ---
EXAM: Bone densitometry. History: Postmenopausal. Findings: Evaluation of the lumbar spine reveals a total bone mineral density of 1.007 grams per centimeter squ ared with T-score of negative 1.4. Evaluation of the left hip reveals a total bone mineral density of 0.677 grams per centimeter squared with T-score of negative 2.6. Evaluation of the right hip reveals a total bone mineral density of 0.673 grams per centimeter square d with T-score of negative 2.7. Impression: 1. Osteopenia of the lumbar spine. 2. Osteoporosis of bilateral hips
--- NOTE | 2018-06-17 16:50 | DI ---
EXAM: Seven views of the lumbar spine. History: Lower back pain. Comparison: Lumbar spine CT 12/14/2017 Findings: Cholecystectomy clips. Osteopenia. Atherosclerotic vascular calcifications. No acute fr acture or subluxation of the lumbar spine. Mild to moderate multilevel degenerative disc space narro wing with endplate sclerosis and osteophyte formation, most significant at L3-L4 and not significantl y changed compared to the prior study. No instability identified with flexion or extension. Impression: 1. No acute osseous abnormality of the lumbar spine. 2. Multilevel degenerative disc disease not significantly changed.
--- NOTE | 2018-06-18 09:01 | MAMMO ---
EXAM: Bilateral digital screening mammogram (2-D and 3-D) History: Screening Comparison: None available. Findings: MLO and CC views of bilateral breasts demonstrate heterogeneously dense breast parenchyma which can obscure small lesions. CAD was reviewed by the radiologist. Tomosynthesis was performed. Benign appearing bilateral vascular and scattered calcifications. There are no dominant masses, no suspicious microcalcifications and no architectural distortions Impression: Benign mammogram. Recommend followup routine screening mammography in 1 year. BIRADS 2
== END 2018-06-17 15:37 | disposition home or self-care (01) ==
LOC: RAD 15:36
PROVIDERS: ATTEND Nurse Practitioner Acute Care
DX: Z12.31 Encounter for screening mammogram for malignant neoplasm of breast (principal); Z78.0 Asymptomatic menopausal state; M51.16 Intervertebral disc disorders with radiculopathy, lumbar region; M51.17 Intervertebral disc disorders with radiculopathy, lumbosacral region; M48.062 Spinal stenosis, lumbar region with neurogenic claudication; M51.36 Other intervertebral disc degeneration, lumbar region; M51.37 Other intervertebral disc degeneration, lumbosacral region; M47.816 Spondylosis without myelopathy or radiculopathy, lumbar region; M47.817 Spondylosis without myelopathy or radiculopathy, lumbosacral region; Z68.20 Body mass index [BMI] 20.0-20.9, adult
CPT/HCPCS: 77067

== ENCOUNTER 2019-02-06 14:12 | Outpatient (CLI) ==
--- NOTE | 2019-02-06 16:11 | MRI ---
EXAM: MRI lumbar spine without contrast. TECHNIQUE: Multiplanar multisequence MRI of the lumbar spine was performed without contrast. COMPARISON: Lumbar spine series from 06/17/[address] of the lumbar spine from 12/14/2017 HISTORY: Back pain FINDINGS: There is no compression fracture. There is no bone marrow edema. There is no inflammator y facet arthropathy or stress reaction in the pedicles. Alignment is anatomic. There are no pars de fects. There is no acute soft disc herniation or extrusion. Signal in the conus is normal and there i s no tether. The cauda equina is normal and symmetric with no evidence of arachnoiditis. Visualized portions of the pelvis show no sacral fracture or sacroiliitis. There are no acute soft tissue abno rmalities. There are 5 lumbar type vertebral bodies. There is a large hiatal hernia. T12-L1: There is some disc space desiccation and some mild facet and ligamentous hypertrophy. Canal stenosis: None. T12 neural foraminal stenosis: None. L1 lateral recess stenosis: None. L1-2: There is some disc space desiccation and minimal facet and ligamentous hypertrophy and minimal anterior osteophytosis. Canal stenosis: None. L1 neural foraminal stenosis: None. L2 lateral recess stenosis: None. L2-3: There is some disc space desiccation and minimal bulging and modest facet and ligamentous hyper trophy with some anterior osteophytosis. Canal stenosis: None. L2 neural foraminal stenosis: Mild bilateral. L3 lateral recess stenosis: None. L3-4: There is disc space desiccation and modest bulging with advanced anterior osteophytosis and inc reasing facet and ligamentous hypertrophy. Canal stenosis: Moderate L3 neural foraminal stenosis: Moderate bilateral. L4 lateral recess stenosis: None. L4-5: There is some disc space desiccation and minimal bulging and advanced facet and ligamentous hyp ertrophy. Canal stenosis: Mild. L4 neural foraminal stenosis: Moderate bilateral. L5 lateral recess stenosis: None. L5-S1: There is some disc space desiccation and minimal bulging with moderate facet and ligamentous h ypertrophy. Canal stenosis: None. L5 neural foraminal stenosis: Moderate right, mild left. S1 lateral recess stenosis: None. IMPRESSION: 1. Advanced lower lumbar facet arthropathy as described with resulting multilevel moderate foraminal stenoses. 2. There is no severe spinal stenosis identified and no disc herniation.
== END 2019-02-06 14:13 | disposition home or self-care (01) ==
LOC: RAD 14:12
PROVIDERS: ATTEND Pain Medicine Interventional Pain Medicine
DX: M51.16 Intervertebral disc disorders with radiculopathy, lumbar region (principal); M51.17 Intervertebral disc disorders with radiculopathy, lumbosacral region; M48.062 Spinal stenosis, lumbar region with neurogenic claudication; M51.36 Other intervertebral disc degeneration, lumbar region; M51.37 Other intervertebral disc degeneration, lumbosacral region; M47.816 Spondylosis without myelopathy or radiculopathy, lumbar region; M47.817 Spondylosis without myelopathy or radiculopathy, lumbosacral region; M15.0 Primary generalized (osteo)arthritis; N95.1 Menopausal and female climacteric states

== ENCOUNTER 2021-03-23 21:11 | Inpatient (IN) ==
[2021-03-23] MEDS ORDERED: ANCEF 1 GM in SODIUM CHLORIDE 50 ML IV ONE (21:45)
[2021-03-23] MEDS ORDERED: ANCEF ONE (22:00)
[2021-03-23] MEDS ORDERED: SODIUM CHLORIDE 1,000 ML IV STA (22:02)
--- NOTE | 2021-03-23 22:02 | ED.PDOC ---
General ED Provider: Dr. CHIDI ROWLAND Chief Complaint: Extremity Swelling/Pain Stated Complaint: Comes to the ER with a 5 days history of right leg swelling and redness. Also complains of generalized weakness had some nausea and vomiting but in the last two days only nausea. Does not have a PCP only goes to pain management for her chronic back pain. Time Seen by Provider: 03/23/21 21:38 Mode of Arrival: Wheelchair Information Source: Patient Nursing and Triage Documentation Reviewed and Agree: Yes Does patient meet sepsis criteria?: No System Inflammatory Response Syndrome: Not Applicable Sepsis Protocol: For patient's 13 years and over: Temp is 96.8 and below OR 101 and greater Pulse >90 BPM Resp >20/minute Acutely Altered Mental Status Are patient's symptoms suggestive of a new infection, such as: -Pneumonia -Skin, Soft Tissue -Endocarditis -UTI -Bone, Joint Infection -Implantable Device -Acute Abdominal Infection -Wound Infection -Meningitis -Blood Stream Catheter Infection -Unknown Musculoskeletal Complaint Exam Lower Extremity Complaint/Exam Location of Pain: Reports Right and Leg Mechanism of Injury: Reports No known trauma Onset/Duration: 5 days Symptoms Are: Still present Current Severity: Moderate Able to Bear Weight: Yes Associated Signs and Symptoms: Reports Redness Septic Arthritis Risk Factors: Reports None Lower Extremity Findings: Present Swelling, Erythema and Warmth Lower Extremities Picture: 1. Redness warmth and swelling Review of Systems Review Of Systems Constitutional: Reports Weakness Eyes: Reports No symptoms Ears, Nose, Mouth, Throat: Reports No symptoms Respiratory: Reports No symptoms Cardiac: Reports No symptoms GI: Reports Nausea; Denies Vomiting : Reports No symptoms Musculoskeletal: Reports Other (leg swelling) Skin: Reports Rash (on the right lower leg ) Neurological: Reports Anxiety and Headache Endocrine: Reports No symptoms Hematologic/Lymphatic: Reports No symptoms All Other Systems: Reviewed and Negative FOR[facility]LY [facility] Medical History Anemia B12 deficiency Trevino esophagus Chronic arthritis Chronic back pain Gastroesophageal reflux disease Hypertension Iron deficiency Osteoporosis Sacral fracture Vitamin D deficiency Family History (Updated 03/24/21 @ 01:42 by SAMEER PEREZ, RN) Other No known health problems Social History Smoking and tobacco status: Never smoker Surgical History History of surgery History of tubal ligation Status post cholecystectomy Status post tonsillectomy Female Reproductive History Menstrual Hx Hysterectomy: No Hx Tubal Ligation: Yes Physical Exam Physical Exam Appearance: Reports Ill-appearing Ill-appearing: Mild Pain Distress: Severe Eyes: Reports Conjunctiva clear ENT: Reports Nose normal; Denies Epistaxis Neck: Not Examined Respiratory: Reports Airway patent, Breath sounds clear and Breath sounds equal Cardiovascular: Reports RRR, Pulses normal and No rub GI/: Reports Not Examined Musculoskeletal: Reports Normal strength, ROM intact and Edema (right lower extremity ) Skin: Reports Warm and Dry Neurological: Reports Sensation intact, Motor intact, Alert and Oriented Psychiatric: Reports Anxious Critical Care Note Critical Care Note Total Critical Care Time (mins): 30 Course Course Hematology/Chemistry: 03/24/21 04:47 03/24/21 04:47 Orders, Labs, Meds: Lab Review 03/23/21 03/23/21 03/23/21 22:00 22:00 22:00 WBC 8.73 RBC 5.49 H Hgb 14.9 Hct 47.0 MCV 85.6 MCH 27.1 MCHC 31.7 L RDW Coeff of Juanpablo 14.1 Plt Count 242 Immature Gran % (Auto) 0.2 Neut % (Auto) 81.9 H Lymph % (Auto) 11.2 Calhoun % (Auto) 6.3 Eos % (Auto) 0.2 Baso % (Auto) 0.2 Neut # (Auto) 7.1 H Lymph # (Auto) 1.0 Calhoun # (Auto) 0.6 Eos # (Auto) 0.0 Baso # (Auto) 0.0 Immature Gran # (Auto) 0.0 Sodium 134.2 L Potassium 2.92 L Chloride 95.1 L Carbon Dioxide 30.7 H Anion Gap 11.32 BUN 13.5 Creatinine 0.68 Estimated GFR (MDRD) 87.00 BUN/Creatinine Ratio 19.85 Glucose 119.1 H Lactic Acid Calcium 9.13 Total Bilirubin 0.84 AST 30.0 ALT 15.5 Alkaline Phosphatase 92.2 Total Protein 7.76 Albumin 4.09 Globulin 3.67 Albumin/Globulin Ratio 1.11 Procalcitonin 0.16 Adenovirus (PCR) B. pertussis DNA (PCR) B.parapertussis DNA PCR C. pneumoniae DNA (PCR) Coronavirus OC43 (PCR) Coronavirus HKU1 (PCR) Coronavirus 229E (PCR) Coronavirus NL63 (PCR) Human Metapneumovir PCR Influenza Type A (PCR) Influenza B (RT-PCR) M. pneumoniae (PCR) Parainfluenza 1 (PCR) Parainfluenza 2 (PCR) Parainfluenza 3 (PCR) Parainfluenza 4 (PCR) RSV (PCR) Entero/Rhino (PCR) SARS-CoV-2 (PCR) 03/23/21 03/23/21 22:00 22:25 WBC RBC Hgb Hct MCV MCH MCHC RDW Coeff of Juanpablo Plt Count Immature Gran % (Auto) Neut % (Auto) Lymph % (Auto) Calhoun % (Auto) Eos % (Auto) Baso % (Auto) Neut # (Auto) Lymph # (Auto) Calhoun # (Auto) Eos # (Auto) Baso # (Auto) Immature Gran # (Auto) Sodium Potassium Chloride Carbon Dioxide Anion Gap BUN Creatinine Estimated GFR (MDRD) BUN/Creatinine Ratio Glucose Lactic Acid 1.33 Calcium Total Bilirubin AST ALT Alkaline Phosphatase Total Protein Albumin Globulin Albumin/Globulin Ratio Procalcitonin Adenovirus (PCR) Not detected B. pertussis DNA (PCR) Not detected B.parapertussis DNA PCR Not detected C. pneumoniae DNA (PCR) Not detected Coronavirus OC43 (PCR) Not detected Coronavirus HKU1 (PCR) Not detected Coronavirus 229E (PCR) Not detected Coronavirus NL63 (PCR) Not detected Human Metapneumovir PCR Not detected Influenza Type A (PCR) Not detected Influenza B (RT-PCR) Not detected M. pneumoniae (PCR) Not detected Parainfluenza 1 (PCR) Not detected Parainfluenza 2 (PCR) Not detected Parainfluenza 3 (PCR) Not detected Parainfluenza 4 (PCR) Not detected RSV (PCR) Not detected Entero/Rhino (PCR) Not detected SARS-CoV-2 (PCR) Not detected Orders Category Date Time Status PLACE PATIENT OBSERVATION .TO MEDSURG (MONITORED BED ADMISSION 03/23/21 23:34 Active ) ACTIVITY .Up ad Vicky CARE 03/23/21 23:29 Active INTAKE & OUTPUT Q8HR CARE 03/23/21 23:28 Active TELEMETRY MONITORING TELE CARE 03/23/21 23:35 Active VITAL SIGNS Q4HR CARE 03/23/21 23:29 Active REGULAR DIET DIETARY 03/23/21 Breakfast Ordered ED APPLY O2 .ONCE EMERGENCY 03/23/21 21:45 Active ED VP INFORMATICS APPLIED .ONCE EMERGENCY 03/23/21 21:45 Active ED IV/MEDIPORT/POWERPORT .ONCE EMERGENCY 03/23/21 21:45 Active ED VITAL SIGNS Q1HR EMERGENCY 03/23/21 21:45 Completed BASIC METABOLIC PANEL DAILY@0600 LAB 03/24/21 04:47 Completed BASIC METABOLIC PANEL DAILY@0600 LAB 03/25/21 06:00 Ordered BLOOD CULTURE (ED ONLY) Stat LAB 03/23/21 22:00 Received CBC W/ AUTO DIFF DAILY@0600 LAB 03/24/21 04:47 Completed CBC W/ AUTO DIFF DAILY@0600 LAB 03/25/21 06:00 Ordered CBC W/ AUTO DIFF Stat LAB 03/23/21 22:00 Completed COMPREHENSIVE METABOLIC PANEL Stat LAB 03/23/21 22:00 Completed LACTIC ACID Stat LAB 03/23/21 22:00 Completed PROCALCITONIN Stat LAB 03/23/21 22:00 Completed RESPIRATORY PANEL 2.1 (PCR) Stat LAB 03/23/21 22:25 Completed 0.9 % Sodium Chloride [Saline Flush] MEDS 03/23/21 21:45 Active 1 syr IVF PRN PRN Acetaminophen [Tylenol] MEDS 03/23/21 23:28 Active 650 mg PO Q4H PRN Cefazolin Sodium [Ancef] MEDS 03/23/21 22:00 Discontinued 1 gm .ROUTE .STK-MED ONE Cefazolin Sodium [Ancef] 1 gm MEDS 03/23/21 21:45 Discontinued 0.9 % Sodium Chloride [Sodium Chloride] 50 ml IV ONCE Enoxaparin Sodium [Lovenox] MEDS 03/24/21 09:00 Active 40 mg SUBCUT DAILY Enoxaparin Sodium [Lovenox] MEDS 03/23/21 23:48 Discontinued 66 mg SUBCUT ONCE ONE Hydrocodone Bit/Acetaminophen [[place] 10-325] MEDS 03/23/21 23:35 Active 1 tab PO TID PRN Hydromorphone HCl [Dilaudid 1 mg/ml Syringe] MEDS 03/23/21 23:28 Active 1 mg IVP Q6H PRN Ketorolac Tromethamine [Toradol] MEDS 03/23/21 22:43 Discontinued 15 mg IVP ONCE ONE Ondansetron HCl/Pf [Zofran 4 mg/2 ml] MEDS 03/23/21 22:43 Discontinued 4 mg IVP ONCE ONE Ondansetron HCl/Pf [Zofran 4 mg/2 ml] MEDS 03/23/21 23:28 Active 4 mg IVP Q6H PRN Pantoprazole Sodium [Protonix IV] MEDS 03/23/21 22:46 Discontinued 40 mg IVP ONCE ONE Potassium Chloride [K-Dur] MEDS 03/23/21 23:27 Discontinued 40 meq PO ONCE ONE Potassium Chloride in 0.9%NaCl [Sodium Chloride 0.9%- MEDS 03/23/21 23:30 Active KCl 20 Meq] 1,000 ml IV 125 mls/hr Sodium Chloride 0.9% [Sodium Chloride] 1,000 ml MEDS 03/23/21 22:02 Discontinued IV 150 mls/hr dextroamphetamine-amphetamine MEDS 03/24/21 09:00 Pending 20 mg PO BID RESUSCITATION STATUS Routine OTHERS 03/23/21 23:[address] HEAD W/O CONTRAST Stat RADS 03/23/21 22:09 Completed U/S EXTREMITY LIMITED Routine RADS 03/24/21 06:00 Ordered Medications Generic Name Dose Route Start Last Admin Trade Name Freq PRN Reason Stop Dose Admin Acetaminophen 650 mg 03/23/21 23:28 Acetaminophen 325 Mg Tablet PO Q4H PRN fever Hydrocodone Bitart/Acetaminophen 1 tab 03/23/21 23:35 Hydrocodone Bit/Acetaminophen 10/325 Mg Tablet PO TID PRN moderate pain Enoxaparin Sodium 40 mg 03/24/21 09:00 Enoxaparin Sodium 40 Mg/0.4 Ml Syr SUBCUT DAILY GRETTA Hydromorphone HCl 1 mg 03/23/21 23:28 Hydromorphone Hcl 1 Mg/Ml Syringe IVP Q6H PRN Severe Pain Potassium Chloride/Sodium Chloride 1,000 mls @ 125 mls/hr 03/23/21 23:30 03/24/21 02:06 Sodium Chloride 0.9%-Kcl 20 Meq IV 125 mls/hr .Q8H GRETTA Administration Non-Formulary Medication 20 mg 03/24/21 09:00 Dextroamphetamine-Amphetamine PO BID GRETTA Ondansetron HCl 4 mg 03/23/21 23:28 Ondansetron Hcl/Pf 4 Mg/2 Ml Sdv IVP Q6H PRN Nausea / Vomiting Sodium Chloride 1 syr 03/23/21 21:45 0.9% Sodium Chloride 10 Ml Disp.Syrin IVF PRN PRN To flush IV Discontinued Medications Generic Name Dose Route Start Last Admin Trade Name Freq PRN Reason Stop Dose Admin Enoxaparin Sodium 66 mg 03/23/21 23:48 03/23/21 23:52 Enoxaparin Sodium 100 Mg/Ml Syr SUBCUT 03/23/21 23:49 66 mg ONCE ONE Administration Cefazolin Sodium 1 gm/ Sodium 50 mls @ 75 mls/hr 03/23/21 21:45 03/23/21 22:19 Chloride IV 03/23/21 22:24 75 mls/hr ONCE ONE Administration Sodium Chloride 1,000 mls @ 150 mls/hr 03/23/21 22:02 03/23/21 22:19 Sodium Chloride IV 03/24/21 04:41 150 mls/hr .Q6H40M STA Administration Ketorolac Tromethamine 15 mg 03/23/21 22:43 03/23/21 22:57 Ketorolac Tromethamine 15 Mg/Ml Vial IVP 03/23/21 22:44 15 mg ONCE ONE Administration Ondansetron HCl 4 mg 03/23/21 22:43 03/23/21 22:57 Ondansetron Hcl/Pf 4 Mg/2 Ml Sdv IVP 03/23/21 22:44 4 mg ONCE ONE Administration Pantoprazole Sodium 40 mg 03/23/21 22:46 03/23/21 23:28 Pantoprazole Sodium 40 Mg Vial IVP 03/23/21 22:47 40 mg ONCE ONE Administration Potassium Chloride 40 meq 03/23/21 23:27 03/23/21 23:52 Potassium Chloride 20 Meq Tab PO 03/23/21 23:28 40 meq ONCE ONE Administration Vital Signs: Temp Pulse Resp BP Pulse Ox 03/23/21 21:17 97.2 F L 82 20 135/75 95 Discharge Plan Discharge Patient Disposition: PLACED OBSERVATION Discharge Problem: Acute hypokalemia Cellulitis Qualifiers: Site of cellulitis: extremity Site of cellulitis of extremity: lower extremity Laterality: right Qualified Code(s): L03.115 - Cellulitis of right lower limb Edema Qualifiers: Edema type: localized Qualified Code(s): R60.0 - Localized edema Headache Qualifiers: Headache type: unspecified Headache chronicity pattern: acute headache Int ractability: not intractable Qualified Code(s): R51.9 - Headache, unspecified ED Provider: CHIDI ROWLAND Condition: Fair Physician Progress Note: []
[2021-03-23 22:08] LABS: BASOPHILS % (AUTO) 0.2 % (0.0-3.0); EOSINOPHILS % (AUTO) 0.2 % (0.0-7.0); HEMOGLOBIN 14.9 g/dl (12.0-16.0); IMMATURE GRANULOCYTE % (AUTO) 0.2 % (0.0-5.0); LYMPHOCYTES % (AUTO) 11.2 (10.0-50.0); MEAN CORPUSCULAR HEMOGLOBIN 27.1 pg (27.0-31.0); MEAN CORPUSCULAR HGB CONC 31.7 (31.8-35.4); MEAN CORPUSCULAR VOLUME 85.6 fl (81.0-99.0); MONOCYTES # (AUTO) 0.6 K/uL (0.4-2.0); MONOCYTES % (AUTO) 6.3 (0-10); NEUTROPHILS # (AUTO) 7.1 K/ul (2.0-6.9); NEUTROPHILS % (AUTO) 81.9 % (42.2-75.2); PLATELET COUNT 242 10^3/uL (140-440); RDW COEFFICIENT OF VARIATION 14.1 % (11.6-14.8); RED BLOOD COUNT 5.49 10^6/ul (4.20-5.40); WHITE BLOOD COUNT 8.73 K/ul (4.6-10.2)
[2021-03-23 22:21] LABS: ALANINE AMINOTRANSFERASE 15.5 U/L (0-35); ALBUMIN 4.09 g/dL (3.5-5.0); ALKALINE PHOSPHATASE 92.2 U/L (53-141); BILIRUBIN,TOTAL 0.84 mg/dL (0.2-1.3); BLOOD UREA NITROGEN 13.5 mg/dL (7-17); CALCIUM 9.13 mg/dL (8.4-10.2); CARBON DIOXIDE 30.7 mmol/L (22-30.0); CHLORIDE 95.1 mmol/L (98-107); CREATININE 0.68 mg/dL (0.60-1.30); GLUCOSE 119.1 mg/dL (74-106); POTASSIUM 2.92 mmol/L (3.5-5.1); SODIUM 134.2 mmol/L (134.5-145); TOTAL PROTEIN 7.76 g/dL (6.3-8.2)
[2021-03-23 22:30] LABS: BORDETELLA PARAPERTUSSIS (PCR) NOT DETECTED (NOT DETECT); BORDETELLA PERTUSSIS (PCR) NOT DETECTED (NOT DETECT); CHLAMYDIA PNEUMONIAE (PCR) NOT DETECTED (NOT DETECT); CORONAVIRUS 229E (PCR) NOT DETECTED (NOT DETECT); CORONAVIRUS HKU1 (PCR) NOT DETECTED (NOT DETECT); CORONAVIRUS NL63 (PCR) NOT DETECTED (NOT DETECT); CORONAVIRUS OC43 (PCR) NOT DETECTED (NOT DETECT); HUMAN METAPNEUMOVIRUS (PCR) NOT DETECTED (NOT DETECT); HUMAN RHINOVIRUS/ENTEROV (PCR) NOT DETECTED (NOT DETECT); INFLUENZA B (PCR) NOT DETECTED (NOT DETECT); MYCOPLASMA PNEUMONIAE (PCR) NOT DETECTED (NOT DETECT); PARAINFLUENZA VIRUS 1 (PCR) NOT DETECTED (NOT DETECT); PARAINFLUENZA VIRUS 2 (PCR) NOT DETECTED (NOT DETECT); PARAINFLUENZA VIRUS 3 (PCR) NOT DETECTED (NOT DETECT); PARAINFLUENZA VIRUS 4 (PCR) NOT DETECTED (NOT DETECT); RESPIRATORY SYNCYTIAL V (PCR) NOT DETECTED (NOT DETECT); SARS_COV_2 (PCR) NOT DETECTED (NOT DETECT)
[2021-03-23] MEDS ORDERED: ZOFRAN 4 MG/2 ML IVP ONE (22:43)
[2021-03-23] MEDS ORDERED: TORADOL IVP ONE (22:43)
[2021-03-23] MEDS ORDERED: PROTONIX IV IVP ONE (22:46)
[2021-03-23] MEDS ORDERED: LOVENOX SUBCUT ONE ×2 (22:46→23:48)
[2021-03-23 23:17] LABS: ADENOVIRUS (PCR) NOT DETECTED (NOT DETECT)
[2021-03-23] MEDS ORDERED: K-DUR PO ONE (23:27)
[2021-03-23] MEDS ORDERED: DILAUDID 1 MG/ML SYRINGE IVP PRN (23:28)
[2021-03-23] MEDS ORDERED: TYLENOL PO PRN (23:28)
--- NOTE | 2021-03-24 01:03 | CT ---
EXAM: CT head without contrast. HISTORY: Headache. PROCEDURE: Contiguous axial CT images of the head without contrast with coronal and sagittal reforma ts. FINDINGS: The ventricles and basal cisterns are normal in size and configuration. No evidence of ma ss or midline shift. No intracranial hemorrhage or evidence of large vessel infarct. No extra-axial fluid collection. The paranasal sinuses and mastoid air cells are well-aerated and normal in appear ance. Impression: Negative CT of the head. All CT scans are performed using dose optimization techniques as appropriate to the performed exam an d include at least one of the following: Automated exposure control, adjustment of the mA and/or kV according t o size, and the use of iterative reconstruction technique.
[2021-03-24 01:48] VITALS: BMI 23.5
[2021-03-24] MEDS: SODIUM CHLORIDE 0.9%-KCL 20 MEQ 1,000 ML IV SCH ×6 (02:06→17:32)
[2021-03-24 05:00] LABS: BASOPHILS % (AUTO) 0.1 % (0.0-3.0); EOSINOPHILS % (AUTO) 0.3 % (0.0-7.0); HEMATOCRIT 37.8 % (37.0-47.0); HEMOGLOBIN 12.2 g/dl (12.0-16.0); IMMATURE GRANULOCYTE % (AUTO) 0.2 % (0.0-5.0); LYMPHOCYTES # (AUTO) 1.1 K/uL (0.60-3.4); LYMPHOCYTES % (AUTO) 12.1 (10.0-50.0); MEAN CORPUSCULAR HEMOGLOBIN 27.5 pg (27.0-31.0); MEAN CORPUSCULAR HGB CONC 32.3 (31.8-35.4); MEAN CORPUSCULAR VOLUME 85.1 fl (81.0-99.0); MONOCYTES # (AUTO) 0.8 K/uL (0.4-2.0); MONOCYTES % (AUTO) 8.8 (0-10); NEUTROPHILS # (AUTO) 6.8 K/ul (2.0-6.9); NEUTROPHILS % (AUTO) 78.5 % (42.2-75.2); PLATELET COUNT 228 10^3/uL (140-440); RDW COEFFICIENT OF VARIATION 14.2 % (11.6-14.8); RED BLOOD COUNT 4.44 10^6/ul (4.20-5.40); WHITE BLOOD COUNT 8.67 K/ul (4.6-10.2)
[2021-03-24 05:12] LABS: BLOOD UREA NITROGEN 14.5 mg/dL (7-17); CALCIUM 8.16 mg/dL (8.4-10.2); CARBON DIOXIDE 27.2 mmol/L (22-30.0); CHLORIDE 102.6 mmol/L (98-107); CREATININE 0.59 mg/dL (0.60-1.30); GLUCOSE 120.6 mg/dL (74-106); POTASSIUM 3.69 mmol/L (3.5-5.1); SODIUM 134.5 mmol/L (134.5-145)
[2021-03-24] MEDS: ZOFRAN 4 MG/2 ML IVP PRN (07:14)
[2021-03-24] MEDS: ADDERALL PO SCH ×2 (08:47→20:58)
[2021-03-24] MEDS: LOVENOX SUBCUT SCH (08:47)
[2021-03-24] MEDS: ROCEPHIN 1 GM/50 ML D5W 1 GM/50 ML BAG IV SCH (08:47)
[2021-03-24] MEDS ORDERED: NON-FORMULARY MEDICATION (Dextroamphetamine-Amphetamine 20 mg tablet) PO SCH (09:00)
[2021-03-24] MEDS: VANCOMYCIN 1 GM in SODIUM CHLORIDE 250 ML IV SCH ×2 (14:15→22:17)
--- NOTE | 2021-03-24 14:29 | US ---
EXAM: Ultrasound venous Doppler right lower extermity HISTORY: Right leg swelling COMPARISON: 03/18/2017 TECHNIQUE: Venous duplex ultrasound of the right lower extremity was performed using color, pedroza-sca le, and Doppler flow imaging. FINDINGS: There is normal color flow and compression of the right common femoral, greater saphenous, profunda femoral, femoral, popliteal, peroneal, posterior tibial, and anterior tibial veins without evidence of intraluminal thrombus. This L note of enlarged right groin lymph node measuring 1.3 cm s hort axis. IMPRESSION: No evidence of right lower extremity deep venous thrombosis.
--- NOTE | 2021-03-24 19:40 | PCM.PROG ---
Date Seen by Provider: 03/24/21 Time Seen by Provider: 11:30 Subjective: mild right leg redness and pain x 1 week. also JIMENEZ, now somewhat better with meds. Objective: Vitals: T=98 F, P=75, R=18, PZ=139/70, SPO2=97 HEENT: []wnl Neck: []supple Lungs: []chest was clear CVS: []rrr Abdomen: []benign Extremities: []right leg mildly swollen, red and minimally tender. no acute neurovascular deficit. Neurological: []non-focal Skin: []right leg excoriation. no acute pus or drainage. Lab/Tests/Diagnostic Imaging: [] Right leg cellulitis----add Vancomycin Hypokalemia--continue repletion PRN. JIMENEZ ----see orders for analgesia. Plan: See above.
[2021-03-25] MEDS: SODIUM CHLORIDE 0.9%-KCL 20 MEQ 1,000 ML IV SCH ×2 (04:16→13:55)
[2021-03-25 05:12] LABS: BASOPHILS % (AUTO) 0.5 % (0.0-3.0); EOSINOPHILS % (AUTO) 0.4 % (0.0-7.0); HEMATOCRIT 39.7 % (37.0-47.0); HEMOGLOBIN 12.4 g/dl (12.0-16.0); IMMATURE GRANULOCYTE % (AUTO) 0.4 % (0.0-5.0); LYMPHOCYTES # (AUTO) 1.4 K/uL (0.60-3.4); LYMPHOCYTES % (AUTO) 19.4 (10.0-50.0); MEAN CORPUSCULAR HEMOGLOBIN 27.2 pg (27.0-31.0); MEAN CORPUSCULAR HGB CONC 31.2 (31.8-35.4); MEAN CORPUSCULAR VOLUME 87.1 fl (81.0-99.0); MONOCYTES # (AUTO) 0.9 K/uL (0.4-2.0); MONOCYTES % (AUTO) 11.7 (0-10); NEUTROPHILS % (AUTO) 67.6 % (42.2-75.2); PLATELET COUNT 225 10^3/uL (140-440); RDW COEFFICIENT OF VARIATION 14.4 % (11.6-14.8); RED BLOOD COUNT 4.56 10^6/ul (4.20-5.40); WHITE BLOOD COUNT 7.37 K/ul (4.6-10.2)
[2021-03-25 05:25] LABS: BLOOD UREA NITROGEN 6.9 mg/dL (7-17); CALCIUM 8.47 mg/dL (8.4-10.2); CHLORIDE 104.4 mmol/L (98-107); CREATININE 0.53 mg/dL (0.60-1.30); POTASSIUM 3.97 mmol/L (3.5-5.1); SODIUM 137.2 mmol/L (134.5-145)
[2021-03-25] MEDS: VANCOMYCIN 1 GM in SODIUM CHLORIDE 250 ML IV SCH ×2 (08:50→20:32)
[2021-03-25] MEDS: LOVENOX SUBCUT SCH (08:51)
[2021-03-25] MEDS: ROCEPHIN 1 GM/50 ML D5W 1 GM/50 ML BAG IV SCH (10:46)
[2021-03-25] MEDS: ADDERALL PO SCH ×2 (10:46→20:32)
--- NOTE | 2021-03-25 19:29 | PCM.PROG ---
Date Seen by Provider: 03/25/21 Time Seen by Provider: 09:00 Subjective: Continues experiencing pain in Rt Leg. US lt leg neg for DVT Objective: Vitals: T=97.6 F, P=65, R=18, XS=929/59, SPO2=98 HEENT: Clear Neck: supple[] CVS: HRRR Abdomen: Soft non tender Extremities: Rt lt down to ankle reddened , tender to calf posterior lateral; Pulses intact Neurological: CN II -XII Intact;No motor or sensory deficit Skin: Erytherma to rt leg Lab/Tests/Diagnostic Imaging: [] (1) Cellulitis of right leg: Status: Acute Code(s): L03.115 - Cellulitis of right lower limb SNOMED Code(s): 063120666 (2) Cellulitis of right ankle: Status: Acute Code(s): L03.115 - Cellulitis of right lower limb SNOMED Code(s): 41559594580028341 Plan: Continue present therapy
[2021-03-26] MEDS: SODIUM CHLORIDE 0.9%-KCL 20 MEQ 1,000 ML IV SCH ×2 (03:05→13:25)
[2021-03-26] MEDS: NORCO 10-325 PO PRN (06:10)
[2021-03-26 07:52] LABS: BASOPHILS % (AUTO) 0.3 % (0.0-3.0); EOSINOPHILS # (AUTO) 0.1 K/ul (0.0-0.7); EOSINOPHILS % (AUTO) 1.2 % (0.0-7.0); HEMATOCRIT 38.2 % (37.0-47.0); HEMOGLOBIN 12.1 g/dl (12.0-16.0); IMMATURE GRANULOCYTE # (AUTO) 0.1 (0.0-1.0); IMMATURE GRANULOCYTE % (AUTO) 0.8 % (0.0-5.0); LYMPHOCYTES # (AUTO) 1.4 K/uL (0.60-3.4); LYMPHOCYTES % (AUTO) 22.5 (10.0-50.0); MEAN CORPUSCULAR HEMOGLOBIN 27.1 pg (27.0-31.0); MEAN CORPUSCULAR HGB CONC 31.7 (31.8-35.4); MEAN CORPUSCULAR VOLUME 85.7 fl (81.0-99.0); MONOCYTES # (AUTO) 0.6 K/uL (0.4-2.0); MONOCYTES % (AUTO) 10.2 (0-10); NEUTROPHILS # (AUTO) 3.9 K/ul (2.0-6.9); PLATELET COUNT 271 10^3/uL (140-440); RDW COEFFICIENT OF VARIATION 14.3 % (11.6-14.8); RED BLOOD COUNT 4.46 10^6/ul (4.20-5.40); WHITE BLOOD COUNT 5.99 K/ul (4.6-10.2)
[2021-03-26 08:02] LABS: ALANINE AMINOTRANSFERASE 10.2 U/L (0-35); ALBUMIN 3.27 g/dL (3.5-5.0); ALKALINE PHOSPHATASE 64.9 U/L (53-141); ASPARTATE AMINO TRANSFERASE 17.4 U/L (14-36); BILIRUBIN,TOTAL 0.44 mg/dL (0.2-1.3); BLOOD UREA NITROGEN 7.2 mg/dL (7-17); CALCIUM 8.63 mg/dL (8.4-10.2); CARBON DIOXIDE 28.6 mmol/L (22-30.0); CHLORIDE 105.8 mmol/L (98-107); CREATININE 0.52 mg/dL (0.60-1.30); GLUCOSE 112.3 mg/dL (74-106); POTASSIUM 3.82 mmol/L (3.5-5.1); SODIUM 138.3 mmol/L (134.5-145); TOTAL PROTEIN 6.39 g/dL (6.3-8.2)
[2021-03-26] MEDS: ADDERALL PO SCH ×2 (08:15→20:09)
[2021-03-26] MEDS: LOVENOX SUBCUT SCH (08:16)
[2021-03-26] MEDS: ROCEPHIN 1 GM/50 ML D5W 1 GM/50 ML BAG IV SCH (08:20)
[2021-03-26] MEDS: VANCOMYCIN 1 GM in SODIUM CHLORIDE 250 ML IV SCH ×2 (09:27→20:09)
[2021-03-26] MEDS ORDERED: LASIX TAB PO ONE (14:00)
--- NOTE | 2021-03-26 16:37 | PCM.PROG ---
Objective: Vitals: T=97.6 F, P=71, R=24, XO=489/79, SPO2=99 HEENT: [mucus membranes moist ] Neck: [Supple ] Lungs: [Clinically clear Bilaterally] CVS: [ Regular S1 S 2 ] Abdomen: [soft Not tender to palpation ] Extremities: [Right lower extremity 2+ pitting edema improved from admission.] Neurological: [Awake alert and Oriented x 3 ] Skin: [Erythema noted on the right leg much improved with minimal warmth ] Lab/Tests/Diagnostic Imaging: [] (1) Cellulitis of right leg: Status: Acute Code(s): L03.115 - Cellulitis of right lower limb SNOMED Code(s): 941041769 (2) Cellulitis of right ankle: Status: Acute Code(s): L03.115 - Cellulitis of right lower limb SNOMED Code(s): 99463650670807413 Assessment: Plan. Continue IV antibiotics. Start Furosemide 20 daily for lower extremity edema Discharge in the Morning with PO antibiotics if continues to be stable
[2021-03-27] MEDS: NORCO 10-325 PO PRN (00:12)
[2021-03-27 08:31] LABS: BASOPHILS % (AUTO) 0.5 % (0.0-3.0); EOSINOPHILS # (AUTO) 0.1 K/ul (0.0-0.7); HEMATOCRIT 37.5 % (37.0-47.0); IMMATURE GRANULOCYTE # (AUTO) 0.1 (0.0-1.0); IMMATURE GRANULOCYTE % (AUTO) 1.1 % (0.0-5.0); LYMPHOCYTES # (AUTO) 1.6 K/uL (0.60-3.4); LYMPHOCYTES % (AUTO) 27.8 (10.0-50.0); MEAN CORPUSCULAR HEMOGLOBIN 27.5 pg (27.0-31.0); MONOCYTES # (AUTO) 0.6 K/uL (0.4-2.0); NEUTROPHILS # (AUTO) 3.3 K/ul (2.0-6.9); NEUTROPHILS % (AUTO) 57.6 % (42.2-75.2); PLATELET COUNT 308 10^3/uL (140-440); RDW COEFFICIENT OF VARIATION 14.3 % (11.6-14.8); RED BLOOD COUNT 4.36 10^6/ul (4.20-5.40); WHITE BLOOD COUNT 5.64 K/ul (4.6-10.2)
[2021-03-27] MEDS: ADDERALL PO SCH ×2 (08:38→20:29)
[2021-03-27] MEDS: LOVENOX SUBCUT SCH (08:39)
[2021-03-27] MEDS: ROCEPHIN 1 GM/50 ML D5W 1 GM/50 ML BAG IV SCH (08:39)
[2021-03-27 08:46] LABS: ALANINE AMINOTRANSFERASE 11.6 U/L (0-35); ALBUMIN 3.42 g/dL (3.5-5.0); ALKALINE PHOSPHATASE 62.8 U/L (53-141); ASPARTATE AMINO TRANSFERASE 42.2 U/L (14-36); BILIRUBIN,TOTAL 0.44 mg/dL (0.2-1.3); BLOOD UREA NITROGEN 10.3 mg/dL (7-17); CALCIUM 8.85 mg/dL (8.4-10.2); CARBON DIOXIDE 30.4 mmol/L (22-30.0); CHLORIDE 100.2 mmol/L (98-107); CREATININE 0.45 mg/dL (0.60-1.30); GLUCOSE 145.1 mg/dL (74-106); POTASSIUM 3.49 mmol/L (3.5-5.1); SODIUM 137.5 mmol/L (134.5-145); TOTAL PROTEIN 6.5 g/dL (6.3-8.2)
[2021-03-27] MEDS: VANCOMYCIN 1 GM in SODIUM CHLORIDE 250 ML IV SCH (09:38)
--- NOTE | 2021-03-27 18:56 | PCM.PROG ---
Date Seen by Provider: 03/27/21 Time Seen by Provider: 11:30 Subjective: Right leg still red and painful on standing. Objective: Vitals: T=97.8 F, P=71, R=16, PE=881/64, SPO2=97 HEENT: []wnl Neck: []supple Lungs: []chest was clear CVS: []rrr Abdomen: []benign Extremities: []right leg mildly swollen, erythematous and tender. no acute neurovascular deficit. Neurological: []non-focal Skin: []right leg redness Lab/Tests/Diagnostic Imaging: [] See labs and imaging flow sheet. (1) Cellulitis of right leg: Status: Acute Code(s): L03.115 - Cellulitis of right lower limb SNOMED Code(s): 351090000 (2) Cellulitis of right ankle: Status: Acute Code(s): L03.115 - Cellulitis of right lower limb SNOMED Code(s): 77950587037417718 Plan: Continue antibiotics. Wound care review on 03/28/2021.
[2021-03-27] MEDS ORDERED: VANCOMYCIN 1.5 GM in SODIUM CHLORIDE 500 ML IV ONE (21:00)
[2021-03-28 05:48] LABS: BASOPHILS # (AUTO) 0.1 K/uL (0-0.2); BASOPHILS % (AUTO) 0.9 % (0.0-3.0); EOSINOPHILS # (AUTO) 0.1 K/ul (0.0-0.7); EOSINOPHILS % (AUTO) 1.9 % (0.0-7.0); HEMATOCRIT 38.8 % (37.0-47.0); HEMOGLOBIN 11.9 g/dl (12.0-16.0); IMMATURE GRANULOCYTE # (AUTO) 0.1 (0.0-1.0); IMMATURE GRANULOCYTE % (AUTO) 1.3 % (0.0-5.0); LYMPHOCYTES # (AUTO) 1.5 K/uL (0.60-3.4); LYMPHOCYTES % (AUTO) 27.4 (10.0-50.0); MEAN CORPUSCULAR HEMOGLOBIN 26.6 pg (27.0-31.0); MEAN CORPUSCULAR HGB CONC 30.7 (31.8-35.4); MEAN CORPUSCULAR VOLUME 86.6 fl (81.0-99.0); MONOCYTES # (AUTO) 0.7 K/uL (0.4-2.0); MONOCYTES % (AUTO) 12.6 (0-10); NEUTROPHILS % (AUTO) 55.9 % (42.2-75.2); PLATELET COUNT 341 10^3/uL (140-440); RDW COEFFICIENT OF VARIATION 14.4 % (11.6-14.8); RED BLOOD COUNT 4.48 10^6/ul (4.20-5.40); WHITE BLOOD COUNT 5.32 K/ul (4.6-10.2)
[2021-03-28 06:01] LABS: ALANINE AMINOTRANSFERASE 9.5 U/L (0-35); ALBUMIN 3.12 g/dL (3.5-5.0); ASPARTATE AMINO TRANSFERASE 20.2 U/L (14-36); BILIRUBIN,TOTAL 0.33 mg/dL (0.2-1.3); BLOOD UREA NITROGEN 10.7 mg/dL (7-17); CALCIUM 8.82 mg/dL (8.4-10.2); CARBON DIOXIDE 33.4 mmol/L (22-30.0); CHLORIDE 100.9 mmol/L (98-107); CREATININE 0.53 mg/dL (0.60-1.30); GLUCOSE 110.5 mg/dL (74-106); POTASSIUM 3.7 mmol/L (3.5-5.1); SODIUM 136.4 mmol/L (134.5-145); TOTAL PROTEIN 6.17 g/dL (6.3-8.2)
[2021-03-28] MEDS: ADDERALL PO SCH ×2 (08:10→20:28)
[2021-03-28] MEDS: LOVENOX SUBCUT SCH (08:10)
[2021-03-28] MEDS: ROCEPHIN 1 GM/50 ML D5W 1 GM/50 ML BAG IV SCH (08:10)
[2021-03-28] MEDS ORDERED: VANCOMYCIN 1.5 GRAM/300 ML PREMIX 1.5 GM/300 ML BAG IV ONE (19:59)
[2021-03-28] MEDS: NORCO 10-325 PO PRN (20:28)
[2021-03-29] MEDS: CLEOCIN PO SCH ×4 (05:37→23:31)
[2021-03-29] MEDS: ADDERALL PO SCH ×2 (09:28→20:34)
[2021-03-29] MEDS: LOVENOX SUBCUT SCH (09:29)
[2021-03-29] MEDS: ROCEPHIN 1 GM/50 ML D5W 1 GM/50 ML BAG IV SCH (09:29)
--- NOTE | 2021-03-29 20:10 | PCM.PROG ---
Date Seen by Provider: 03/29/21 Time Seen by Provider: 12:15 Subjective: Pt had no acute complaint. right leg swelling was less. no acute pain Objective: Vitals: T=97.6 F, P=85, R=24, EQ=888/67, SPO2=98 HEENT: []wnl Neck: []supple Lungs: []chest was clear CVS: []rrr Abdomen: []benign Extremities: []right leg mildly erythematous. less swollen. no acute neurovascular deficit. Neurological: []non-focal Skin: []no acute abnormality. Lab/Tests/Diagnostic Imaging: [] (1) Cellulitis of right leg: Status: Acute Code(s): L03.115 - Cellulitis of right lower limb SNOMED Code(s): 679429863 (2) Cellulitis of right ankle: Status: Acute Code(s): L03.115 - Cellulitis of right lower limb SNOMED Code(s): 72018913465266642 Plan: Pt on oral meds and may be discharged home on 03/30/2021.
[2021-03-29] MEDS: ZOFRAN 4 MG/2 ML IVP PRN (20:45)
[2021-03-29] MEDS: NORCO 10-325 PO PRN (23:34)
[2021-03-30] MEDS: CLEOCIN PO SCH ×2 (05:50→12:58)
--- NOTE | 2021-03-30 07:25 | PCM.PROG ---
Date Seen by Provider: 03/28/21 Time Seen by Provider: 03:30 Subjective: Has been treated for acute cellulitis Rt Leg; Has been on IV meds Vancomycin and Rocephin.RLE venous doppler US neg for DVT; Isolated solitary Rt groin Lymph node appreciated on report Lab reviewd and WNL Objective: Vitals: T=97.8 F, P=87, R=18, NK=516/57, SPO2=99 HEENT: Clear Neck: Soft; no focal findings Lungs: CTA- AF CVS: HRRR w/o Murmur Abdomen: Soft and non tender Extremities: RLE-Distal leg in region of calf is erythematous and warm to touch-no focal tenderness; Bilateral pulses normal. Homans testing is negative bilaterally Neurological: Grossly normal; no focal deficit Skin: RT LEG as noted above Lab/Tests/Diagnostic Imaging: See chart (1) Cellulitis of right leg: Status: Acute Code(s): L03.115 - Cellulitis of right lower limb SNOMED Code(s): 275807285 Assessment: Continue current treatment. Dicontinue IV antibiotics Start po med Cleocin Re evaluation by hospitalist in AM (2) Cellulitis of right ankle: Status: Acute Code(s): L03.115 - Cellulitis of right lower limb SNOMED Code(s): 37152403462801391 Plan: Review lab, Ultrasound. Continue current treatment. Discontinue IV antibiotics Start po med Cleocin Re evaluation by hospitalist in AM If remains stabe discharge planning
[2021-03-30] MEDS: LOVENOX SUBCUT SCH (09:17)
[2021-03-30] MEDS: ADDERALL PO SCH (09:17)
[2021-03-30] MEDS: ROCEPHIN 1 GM/50 ML D5W 1 GM/50 ML BAG IV SCH (09:17)
[2021-03-30 11:04] VITALS: BP 100/52; TEMP 96.8
[2021-03-30] MEDS: NORCO 10-325 PO PRN (13:17)
--- NOTE | 2021-04-06 15:25 | PCM.PROG ---
Date Seen by Provider: 03/30/21 Time Seen by Provider: 10:25 Subjective: Re evaluatio of rt leg swelling- has improved slightly Objective: Vitals: T=97.8 F, P=87, R=18, LP=420/57, SPO2=99 HEENT: clear Neck: Supple Lungs: CTA-AF CVS: HR RRR Abdomen: Soft non tender Extremities: miild Rt leg edema and tenderness Neurological: Normal Skin: W& D Lab/Tests/Diagnostic Imaging:See Chart (1) Cellulitis of right leg: Status: Acute Code(s): L03.115 - Cellulitis of right lower limb SNOMED Code(s): 320344353 (2) Cellulitis of right ankle: Status: Acute Code(s): L03.115 - Cellulitis of right lower limb SNOMED Code(s): 22018120490174423 (3) Shortness of breath: Status: Acute Code(s): R06.02 - Shortness of breath SNOMED Code(s): 124399293 Plan: Continue present therapy Meds reviewed Discharge to home/planning completed
--- NOTE | 2021-05-04 10:09 | PCM.DC ---
Final Diagnosis:Cellulitis Rt Leg/ankle SUMMARY STATEMENT: The patient is a 65 female that was admitted to the hospital March 23 for treatment of cellulitis of her her right leg and ankle. There was redness and she experienced associated nausea and vomiting. She was admitted for treatment of the acute cellulitis of the right lower extremitys and associated edema. Doppler Ultrasound was negative for DVT. Extremity edema improved at the course the hospitalization with less erythema noted. She was switched to oral antibiotics as a result of being symptomatically impr dre She was clinically improved asn discharged home in stable and improved condition (1) Cellulitis of right leg: Status: Acute Code(s): L03.115 - Cellulitis of right lower limb SNOMED Code(s): 791676594 (2) Cellulitis of right ankle: Status: Acute Code(s): L03.115 - Cellulitis of right lower limb SNOMED Code(s): 82784193185195420 (3) Back pain: Status: Acute Code(s): M54.9 - Dorsalgia, unspecified SNOMED Code(s): 711603314 Qualifiers: Back pain location: low back pain Chronicity: chronic Back pain laterality: midline Sciatica presence: unspecified whether sciatica present Qualified Code(s): M54.5 - Low back pain (4) Edema: Status: Acute Code(s): R60.9 - Edema, unspecified SNOMED Code(s): 188210575 Qualifiers: Edema type: localized Qualified Code(s): R60.0 - Localized edema (5) Acute hypokalemia: Status: Acute Code(s): E87.6 - Hypokalemia SNOMED Code(s): 32836906 (6) Chronic back pain: Status: Acute Code(s): M54.9 - Dorsalgia, unspecified; G89.29 - Other chronic pain SNOMED Code(s): 313491170 (7) Fatigue: Status: Acute Code(s): R53.83 - Other fatigue SNOMED Code(s): 78864860 Medications at Discharge: Ambulatory Orders Medication Instructions Recorded dextroamphetamine-amphetamine 20 mg PO BID 03/23/21 hydrocodone-acetaminophen 1 tab PO TID PRN 03/23/21
--- NOTE | 2021-05-07 10:35 | PCM.DC ---
Final Diagnosis: Cellulitis Rt Leg; Back Pain: Extremity Edema; Hypokalemia Entering Statement: The patient is a 65 female that was admitted to the hospital March 23 for treatment of cellulitis of her her right leg and ankle. There was redness and she experienced associated nausea and vomiting. She was admitted for treatment of the acute cellulitis of the right lower extremitys and associated edema. Diagnostic study: Doppler Ultrasound was negative for DVT. Hospital Course: Admitted and IV antibiotics administered. Extremity edema improved at the course the hospitalization with less erythema noted. She was switched to oral antibiotics as a result of being symptomatically improved She was clinically improved asn discharged home in stable and improved condition. (1) Cellulitis of right leg: Status: Acute Code(s): L03.115 - Cellulitis of right lower limb SNOMED Code(s): 715400000 (2) Cellulitis of right ankle: Status: Acute Code(s): L03.115 - Cellulitis of right lower limb SNOMED Code(s): 68525197594046399 (3) Back pain: Status: Acute Code(s): M54.9 - Dorsalgia, unspecified SNOMED Code(s): 257761227 Qualifiers: Back pain laterality: midline Back pain location: low back pain Chronicity: chronic Sciatica presence: unspecified whether sciatica present Qualified Code(s): M54.5 - Low back pain (4) Edema: Status: Acute Code(s): R60.9 - Edema, unspecified SNOMED Code(s): 685390026 Qualifiers: Edema type: localized Qualified Code(s): R60.0 - Localized edema (5) Acute hypokalemia: Status: Acute Code(s): E87.6 - Hypokalemia SNOMED Code(s): 31991304 (6) Chronic back pain: Status: Acute Code(s): M54.9 - Dorsalgia, unspecified; G89.29 - Other chronic pain SNOMED Code(s): 110536513 (7) Fatigue: Status: Acute Code(s): R53.83 - Other fatigue SNOMED Code(s): 56209565 Medications at Discharge: Ambulatory Orders Medication Instructions Recorded dextroamphetamine-amphetamine 20 mg PO BID 03/23/21 hydrocodone-acetaminophen 1 tab PO TID PRN 03/23/21
== END 2021-03-30 13:35 | disposition home or self-care (01) | DRG 948 ==
LOC: MEDSURG A 21:11 → ED 21:11 → MEDSURG A 03-24 01:30
PROVIDERS: ADMIT Internal Medicine Geriatric Medicine; ATTEND Emergency Medicine
DX: G89.29 Other chronic pain; L03.115 Cellulitis of right lower limb; E87.6 Hypokalemia; R53.1 Weakness; R06.02 Shortness of breath; R60.9 Edema, unspecified; M54.5 Low back pain; R11.2 Nausea with vomiting, unspecified; R60.0 Localized edema; R53.83 Other fatigue; Z20.822 Contact with and (suspected) exposure to COVID-19; R51.9 Headache, unspecified; M54.9 Dorsalgia, unspecified